=== PATIENT | male | born 1945 | race Caucasian/White ===

== ENCOUNTER 2018-11-13 00:17 | Day surgery (SDC) | payer MEDICARE ==
[2018-11-13] MEDS ORDERED: Amlodipine Besy10 MG PO (15:11)
[2018-11-13] MEDS ORDERED: CLON.1 PO (15:12)
[2018-11-13] MEDS ORDERED: ASPI325 PO (15:12)
[2018-11-13] MEDS ORDERED: CLOP75 PO (15:13)
[2018-11-13] MEDS ORDERED: DOXA4 PO (15:14)
[2018-11-13] MEDS ORDERED: VITAMIN D250000 UNIT PO (15:14)
[2018-11-13] MEDS ORDERED: Lasix40 MG PO (15:15)
[2018-11-13] MEDS ORDERED: Humalog100 UNIT/1 (15:16)
[2018-11-13] MEDS ORDERED: Neurontin600 MG PO (15:16)
[2018-11-13] MEDS ORDERED: SYNTHROID175 MCG PO (15:17)
[2018-11-13] MEDS ORDERED: TOUJEO SOL300 UNIT/1 SC (15:17)
[2018-11-13] MEDS ORDERED: ZESTRIL40 MG PO (15:18)
[2018-11-13] MEDS ORDERED: LISI20 PO (15:19)
== END 2018-11-13 16:10 | disposition home or self-care (01) ==
LOC: ATC 00:17
DX: N18.6 End stage renal disease (principal); D63.1 Anemia in chronic kidney disease; Z79.899 Other long term (current) drug therapy; Z79.82 Long term (current) use of aspirin; Z79.4 Long term (current) use of insulin
CPT/HCPCS: 36415; 36430; 86850; 86900; 86901; 86923; J7050; P9016

== ENCOUNTER 2018-12-01 10:30 | Observation (INO) | payer MEDICARE ==
[~2018-12-01] VITALS: Ht 182.9 cm; Wt 80.9 kg
[~2018-12-01 10:30] MED LIST: ASPI325 PO; Amlodipine Besy10 MG PO; CLON.1 PO; CLOP75 PO; DOXA4 PO; Humalog100 UNIT/1; LISI20 PO; Lasix40 MG PO; Neurontin600 MG PO; SYNTHROID175 MCG PO; TOUJEO SOL300 UNIT/1 SC; VITAMIN D250000 UNIT PO; ZESTRIL40 MG PO
[2018-12-01] MEDS ORDERED: Neurontin600 MG PO (10:59)
[2018-12-01] MEDS ORDERED: Humalog100 UNIT/1 SC (10:59)
[2018-12-01 11:00] LABS: Calcium, Ionized (POC) 1.02 mmol/L (1.10-1.46); Chloride (POC) 115 mmol/L (98-108); Creatinine (POC) 5.4 mg/dL (0.8-1.3); Glucose (ISTAT POC) 212 mg/dL (70-99); Hemoglobin (POC) 11.2 g/dL (13.5-17.5); Potassium (POC) 7.4 mmol/L (3.5-5.5); Sodium (POC) 135 mmol/L (135-148); Total CO2 (POC) 14 mmol/L (21-32)
[2018-12-01] MEDS ORDERED: LISI20 PO (11:00)
[2018-12-01] MEDS ORDERED: ATOR40TA PO (11:00)
[2018-12-01 11:02] LABS: BASOPHILS ABSOLUTE AUTO 0.04 K/mm3 (0.00-0.23); BASOPHILS PERCENT AUTO 1 % (0-2); EOSINOPHILS ABSOLUTE AUTO 0.13 K/mm3 (0.00-0.68); EOSINOPHILS PERCENT AUTO 3 % (0-6); Hematocrit 36.4 % (37.0-53.0); IMMATURE GRAN ABSOLUTE AUTO 0.01 K/mm3 (0.00-0.10); IMMATURE GRAN PERCENT AUTO 0 % (0-1); LYMPHOCYTES ABSOLUTE AUTO 0.77 K/mm3 (0.84-5.20); LYMPHOCYTES PERCENT AUTO 17 % (21-46); MONOCYTES ABSOLUTE AUTO 0.44 K/mm3 (0.16-1.47); MONOCYTES PERCENT AUTO 10 % (4-13); Mean Corpuscular HGB 31.8 pg (26.0-34.0); Mean Corpuscular HGB Conc 30.2 g/dL (31.5-36.5); Mean Corpuscular Volume 105 fL (80-100); Mean Platelet Volume 11.5 fL (9.1-12.4); NEUTROPHILS ABSOLUTE AUTO 3.23 K/mm3 (1.96-9.15); NEUTROPHILS PERCENT AUTO 70 % (41-73); Platelet Count 113 K/mm3 (150-400); RDW Coefficient Variation 15.3 % (11.7-14.2); RDW Standard Deviation 59.8 fL (35.1-46.3); Red Blood Cell Count 3.46 M/mm3 (4.30-5.90); White Blood Cell Count 4.62 K/mm3 (4.00-11.30)
[2018-12-01] MEDS ORDERED: MAGNESIUM PO (11:02)
[2018-12-01] MEDS ORDERED: Mupirocin22 GM (11:02)
[2018-12-01] MEDS ORDERED: TRESIBA100 UNIT/1 SC (11:03)
[2018-12-01 11:19] LABS: International Normalized Ratio 1.08; Prothrombin Time Results 11.4 Sec (9.7-11.5)
[2018-12-01 11:39] LABS: Albumin, Blood 2.7 g/dL (3.4-5.0); Albumin/Globulin Ratio 0.8 (0.8-1.8); Bilirubin, Total 0.2 mg/dL (0.1-1.0); Bun/Creatinine Ratio 32.3 (12.0-20.0); Calcium, Blood 7.1 mg/dL (8.5-10.1); Creatinine, Blood 4.52 mg/dL (0.60-1.20); Globulin, Blood 3.4 g/dL (2.2-4.0); Potassium, Blood 7.2 mmol/L (3.5-5.5); Total Protein, Blood 6.1 g/dL (6.4-8.2)
[2018-12-01] MEDS ORDERED: TOUJEO SOL300 UNIT/1 SC (12:32)
[2018-12-01] MEDS ORDERED: SEVE800 PO (12:33)
[2018-12-01] MEDS ORDERED: VITAMIN D50000 UNIT PO (12:34)
[2018-12-01 12:58] LABS: Calcium, Blood 7.1 mg/dL (8.5-10.1); Creatinine, Blood 4.51 mg/dL (0.60-1.20); Potassium, Blood 7.2 mmol/L (3.5-5.5)
[2018-12-01] MEDS ORDERED: VITAMIN D250000 UNIT PO (15:09)
[2018-12-01] MEDS ORDERED: Super B-50 Com1 EACH PO (15:13)
[2018-12-01 15:58] LABS: Potassium, Blood 6.8 mmol/L (3.5-5.5)
--- NOTE | 2018-12-01 16:19 | NUR ---
ARRIVAL PT ARRIVED TO UNIT AND PEER STAFF ABLE TO GET PATIENT SETTLED AND BEGIN ADMISSION PROCESS. I WAS ABLE TO COMPLETE ADMISSION PROCESS. PT REPORTS HE IS NOT HAPPY ABOUT BEING THERE AND FEELS OKAY. PT VITAL SIGNS STABLE ALTHOUGH HEART RATE SINUS BRADYCARDIA IN 40'S. PT REPROTS THAT THEY HAVE PREVIOUSLY TALKED AOUT PLACING A PACEMAKER IN HIM. RECIEVED LAB RESULTS, POTASSIUM HAS COME DOWN TO 6.8. CALL PLACED TO DR. HOGAN TO NOTIFIY OF THIS. WILL CONTINUE TO MONITOR.
--- NOTE | 2018-12-01 18:38 | NUR ---
PERITONEAL DIALYSIS PATIENT ADMITTED TO PCU 6 WITH SERUM K+ 6.8 DR HOGAN ORDERED 3 EXCHANGES TO BE DONE PRIOR TO START OF REGULAR OVERNIGHT CCPD. PATIENT CURRENTLY IN PROCESS OF TRANSFERING CARE FROM [facility] IN [place] TO [facility] IN [place]. PATIENT HAS A LARGE AMOUNT OF FRESENIUS FLUIDS REMAINING AT HIS HOME, HE STILL HAS A FRESENIUS TRANSFER SET ON HIS PD CATHETER NECESSITATING A TRANSFER SET CHANGE TO [employer]. THE TRANSFER SET WAS AESEPTICALLY CHANGED AND ONCE PRIME COMPLETE PATIENT WAS CONNECTED PER PROTOCOL AND FLUSHES STARTED.
--- NOTE | 2018-12-01 19:39 | NUR ---
SHIFT SUMMARY PT PLEASANT, COOPERATIVE AND USES CALL LIGHT APPROPRAITELY. ALTHOUGH PT REPORTS HE IS NOT HAPPY ABOUT BEING AT HOSPITAL. ASSESSMENT FINDINGS REMAIN UNCHANGED SINCE ARRIVAL TO UNIT. VITAL SIGNS STABLE. COMPLETED ORDERS RECIEVED FROM DOCTOR SAMIRA. AFTER THIS POTASSIUM LEVEL WAS REDRAWN. PT HEART RATE INCREASED TO 50'S. PT WAS ABLE TO AMBUATLE TO BATHROOM AND TOLERATED WELL.PT DENIES ANY DIZZINESS OR LIGHTHEADNESS. FAMIYL AT BEDSDIE INTTERMITTENLY. BED IN LOW POSITION, CALL LIGHT IN REACH AND PT DENIES ANY NEEDS WILL CONTINUE TO MONITOR UNTIL HANDOFF TO NIGHTSHIFT RN.
--- NOTE | 2018-12-01 21:40 | NUR ---
PT CBG ELEVATED. PT REPORTS TAKING LONG ACTING INSULIN IN THE EVENINGS ONLY & NOT TAKING "COVERAGE" FOR BLOOD SUGARS AFTER DINNER D/T HX OF BLOOD SUGARS DROPPING OVERNIGHT. WILL CONTINUE TO MONITOR.
--- NOTE | 2018-12-01 21:49 | NUR ---
ONCE FLUSHES COMPLETED, CYCLER STRIPPED, CLEANED AND RESTRUNG FOR OVERNIGHT CCPD THERAPY. 6L 2.5% AND 6L 1.5% UTILIZED. CYCLER PROGRAMMED PER RX. PATIENT AWAKE / ALERT IN BED. SPOUSE AT BEDSIDE. PATIENT AESEPTICALLY CONNECTED AND THERAPY STARTED. INITIAL DRAIN MONITORED FOR PATIENT TOLERANCE. EXIT SITE CARE DONE. SOME REDNESS AT EXIT BUT NO TENDERNESS REPORTED. NEW STERILE DRESSING APPLIED AND ONE STRAIN RELIEF IN PLACE. PD EFFLUENT SAMPLE ORDERED FOR AM AND DIALYSIS NURSE WILL OBTAIN AND TRANSPORT TO LAB.
--- NOTE | 2018-12-01 22:00 | NUR ---
PERITONEAL DIALYSIS BEING DONE IN ROOM BY DIALYSIS NURSE.
[2018-12-01 22:20] LABS: Bun/Creatinine Ratio 33.7 (12.0-20.0); Calcium, Blood 7.2 mg/dL (8.5-10.1); Creatinine, Blood 4.09 mg/dL (0.60-1.20); Potassium, Blood 5.5 mmol/L (3.5-5.5)
--- NOTE | 2018-12-02 00:16 | NUR ---
EPISODE OF 450 MLS EMESIS. CALL TO WELL LOGGING CAPTAIN SOM W/ REQUEST FOR SOMETHING FOR N&V. WELL LOGGING CAPTAIN TO PUT IN ORDERS. WILL CONTINUE TO MONITOR AND PROVIDE CARE.
[2018-12-02 03:38] LABS: Hemoglobin 10.9 g/dL (13.5-17.5)
[2018-12-02 03:58] LABS: Albumin, Blood 2.5 g/dL (3.4-5.0); Albumin/Globulin Ratio 0.8 (0.8-1.8); Bilirubin, Total 0.3 mg/dL (0.1-1.0); Bun/Creatinine Ratio 33.4 (12.0-20.0); Calcium, Blood 7.4 mg/dL (8.5-10.1); Creatinine, Blood 3.92 mg/dL (0.60-1.20); Globulin, Blood 3.2 g/dL (2.2-4.0); Phosphorus, Blood 6.1 mg/dL (2.5-4.9); Potassium, Blood 5.1 mmol/L (3.5-5.5); Total Protein, Blood 5.7 g/dL (6.4-8.2)
--- NOTE | 2018-12-02 04:56 | NUR ---
SHIFT SUMMARY PT A&O X4. MONITOR SHOWS SB, HR 40-60. LUNG SOUNDS CLEAR, SPO2 > 92% ON RA. VSS. 1 EPISODE OF 450 MLS OF EMESIS THIS SHIFT, TX'D W/ ONE TIME ORDER ZOFRAN. PD DONE IN PT RM THIS SHIFT BY DIALYSIS NURSE. PT REPORTING DESIRE TO GO HOME. WILL CONTINUE TO MONITOR AND PROVIDE CARE UNTIL REPORT OFF TO DAY SHIFT RN.
[2018-12-02 10:07] LABS: Automated BF WBC Count 0.005 K/mm3 (0-999); Body Fluid WBC Count 5 /mm3 (0-999)
[2018-12-02 10:47] LABS: RBC Count, Body Fluid 44 /mm3 (0-0)
[2018-12-02 11:04] LABS: Appearance, Body Fluid Clear (Clear); Color, Body Fluid No color (None-Yellow)
[2018-12-02 11:44] LABS: Total Cell Count, Body Fluid 26
--- NOTE | 2018-12-02 12:36 | NUR ---
SHIFT SUMMARY PT ALERT AND ORIENTED. VS STABLE. PT DENIES ANY PAIN. PERITONEAL DIALYSIS COMPLETE THIS AM. DR. LIZARRAGA IN WITH DISCHARGE ORDERS. DISCHARGE INSTRUCTIONS PROVIDED. NO NEW MEDICATIONS. ALL QUESTIONS ANSWERED. SPOKE WITH PT'S AND UPDATED HER ON DISCHARGE. STRENGTH AND CONDITIONING COACH IN WITH PT AND THEN PT WILL BE TAKEN OUT BY WHEELCHAIR.
--- NOTE | 2018-12-02 13:11 | NUR ---
DIALYSIS-PD DC'ED TX AT 0800. ID [id number] UF [id number]. PT VERY ANXIOUS ABOUT HIS PD SUPPLIES (FR[employer]ENIUS VS [employer]). HE HAS ASKED THE FLOOR RN, WHO DOESNT KNOW ABOUT PD, DIALYSIS NURSES, AND THE DRS. I CALLED THE [place] PD NURSE WHO HAS BEEN DEALING WITH HIM SINCE HE TRANSFERED HERE. SHE IS GOING TO TALK TO HIM ABOUT THE SUPPLIES AGAIN. HIS SITE WAS CLEAR AND THE FLUID WAS CLEAR. SUPPLIES AGAIN, HE SITE WAS CLEAR AND FLUID CLEAR.
== END 2018-12-02 12:51 | disposition home or self-care (01) ==
LOC: ER 10:30 → PCU 10:31
PROVIDERS: Emergency Medicine; Internal Medicine Nephrology; ADMIT Hospitalist
DX: E87.5 Hyperkalemia (principal); R00.1 Bradycardia, unspecified; K92.1 Melena; I12.0 Hypertensive chronic kidney disease with stage 5 chronic kidney disease or end stage renal disease; E10.22 Type 1 diabetes mellitus with diabetic chronic kidney disease; N18.6 End stage renal disease; E10.51 Type 1 diabetes mellitus with diabetic peripheral angiopathy without gangrene; I73.9 Peripheral vascular disease, unspecified; I25.10 Atherosclerotic heart disease of native coronary artery without angina pectoris; Z99.2 Dependence on renal dialysis; Z87.891 Personal history of nicotine dependence; Z79.899 Other long term (current) drug therapy; Z79.82 Long term (current) use of aspirin; Z79.02 Long term (current) use of antithrombotics/antiplatelets
CPT/HCPCS: 36415; 80047; 80048; 80053; 82272; 82374; 82947; 83735; 84100; 84132; 85014; 85018; 85025; 85610; 85730; 86850; 86900; 86901; 87070; 87075; 87205; 89051; 93005; 93010; 96365; 96366; 96375; 96376; 99285-25; C9113; G0257; G0378; J0610; J1644; J1815; J2405; J7799

== ENCOUNTER → 2019-01-08 | Outpatient (CLI) | payer MEDICARE ==
[~2019-01-08] MED LIST changes: +ATOR40TA PO; +Humalog100 UNIT/1 SC; +MAGNESIUM PO; +Mupirocin22 GM; +SEVE800 PO; +Super B-50 Com1 EACH PO; +TRESIBA100 UNIT/1 SC; +VITAMIN D50000 UNIT PO
== END | disposition home or self-care (01) ==
LOC: LAB SHORT 10:44 → PLD 10:44
DX: D04.22 Carcinoma in situ of skin of left ear and external auricular canal (principal); D04.4 Carcinoma in situ of skin of scalp and neck
CPT/HCPCS: 88305

== ENCOUNTER → 2019-08-19 | Outpatient (CLI) | payer MEDICARE ==
[2019-08-19 15:12] LABS: BASOPHILS ABSOLUTE AUTO 0.04 K/mm3 (0.00-0.23); BASOPHILS PERCENT AUTO 1 % (0-2); EOSINOPHILS ABSOLUTE AUTO 0.21 K/mm3 (0.00-0.68); EOSINOPHILS PERCENT AUTO 5 % (0-6); Hemoglobin 11.2 g/dL (13.5-17.5); IMMATURE GRAN ABSOLUTE AUTO 0.01 K/mm3 (0.00-0.10); IMMATURE GRAN PERCENT AUTO 0 % (0-1); LYMPHOCYTES ABSOLUTE AUTO 1.05 K/mm3 (0.84-5.20); LYMPHOCYTES PERCENT AUTO 24 % (21-46); MONOCYTES PERCENT AUTO 9 % (4-13); Mean Corpuscular HGB 32.1 pg (26.0-34.0); Mean Corpuscular HGB Conc 32.9 g/dL (31.5-36.5); Mean Corpuscular Volume 97 fL (80-100); NEUTROPHILS ABSOLUTE AUTO 2.63 K/mm3 (1.96-9.15); NEUTROPHILS PERCENT AUTO 61 % (41-73); Platelet Count 155 K/mm3 (150-400); RDW Coefficient Variation 13.1 % (11.7-14.2); RDW Standard Deviation 46.5 fL (35.1-46.3); Red Blood Cell Count 3.49 M/mm3 (4.30-5.90); White Blood Cell Count 4.34 K/mm3 (4.00-11.30)
[2019-08-19 15:19] LABS: Percent Saturation 21.9 % (20.0-50.0)
[2019-08-19 15:26] LABS: Alanine Aminotransfer (ALT/SGP 19 U/L (12-78); Albumin, Blood 2.7 g/dL (3.4-5.0); Albumin/Globulin Ratio 0.8 (0.8-1.8); Alk Phos 119 U/L (50-136); Anion Gap 8 mmol/L (6-16); Aspartate Aminotrans (AST/SGOT 20 U/L (12-37); Bilirubin, Direct 0.1 mg/dL (0.0-0.3); Bilirubin, Indirect 0.4 mg/dL (0.1-0.7); Bilirubin, Total 0.5 mg/dL (0.1-1.0); Blood Urea Nitrogen 55 mg/dL (8-24); CHOL/HDL RATIO 2.5; CO2, Blood 27 mmol/L (21-32); Calcium, Blood 8.2 mg/dL (8.5-10.1); Chloride, Blood 104 mmol/L (98-108); Cholesterol 122 mg/dL (50-200); Globulin, Blood 3.5 g/dL (2.2-4.0); Glucose, Blood 197 mg/dL (70-99); HDL Cholesterol 48 mg/dL (>39); LDL/HDL RATIO 1.3; Low Density Lipoprotein Chol 61 mg/dL (0-110); Magnesium, Blood 2.7 mg/dL (1.6-2.4); Phosphorus, Blood 3.4 mg/dL (2.5-4.9); Potassium, Blood 3.8 mmol/L (3.5-5.5); Sodium, Blood 139 mmol/L (136-145); Total Protein, Blood 6.2 g/dL (6.4-8.2); Triglycerides 65 mg/dL (30-160); Very Low Density Lipoprot Chol 13 mg/dL (6-32)
[2019-08-19 15:34] LABS: Bun/Creatinine Ratio 15.2 (12.0-20.0); Creatinine, Blood 3.63 mg/dL (0.60-1.20); Folate 14.9 ng/mL (5.2-); Glomerular Filtration Rate 18 (60-)
[2019-08-20 08:08] LABS: HCV ANTIBODY <0.1 (0.0-0.9); HEPATITIS B SURF AB QUANT 65.4 mIU/mL (Immunity>9.9)
[2019-08-21 15:10] LABS: A/G RATIO 1.3 (0.7-1.7); ALPHA-1-GLOBULIN 0.3 g/dL (0.0-0.4); ALPHA-2-GLOBULIN 0.7 g/dL (0.4-1.0); BETA GLOBULIN 0.7 g/dL (0.7-1.3); GAMMA GLOBULIN 0.7 g/dL (0.4-1.8); GLOBULIN, TOTAL 2.4 g/dL (2.2-3.9); IMMUNOGLOBULIN A, QN, SERUM 303 mg/dL (61-437); IMMUNOGLOBULIN G, QN, SERUM 699 mg/dL (603-1613); IMMUNOGLOBULIN M, QN, SERUM 63 mg/dL (15-143); M-SPIKE Not Observed g/dL (Not Observed); PROTEIN, TOTAL, SERUM 5.4 g/dL (6.0-8.5)
== END | disposition home or self-care (01) ==
PROVIDERS: Internal Medicine Nephrology
DX: N18.4 Chronic kidney disease, stage 4 (severe) (principal); D63.1 Anemia in chronic kidney disease; N25.81 Secondary hyperparathyroidism of renal origin; E55.9 Vitamin D deficiency, unspecified; E78.00 Pure hypercholesterolemia, unspecified; D51.8 Other vitamin B12 deficiency anemias; D52.8 Other folate deficiency anemias; D50.9 Iron deficiency anemia, unspecified; R76.9 Abnormal immunological finding in serum, unspecified; R94.5 Abnormal results of liver function studies; R94.6 Abnormal results of thyroid function studies

== ENCOUNTER 2019-09-19 21:25 | Inpatient (IN) | payer MEDICARE, OTHER ==
[~2019-09-19] VITALS: Ht 180.3 cm; Wt 79.7 kg
[~2019-09-19 21:25] MED LIST changes: -ATOR40TA PO; +ATOR80 PO
[2019-09-19 21:44] LABS: BASOPHILS ABSOLUTE AUTO 0.08 K/mm3 (0.00-0.23); BASOPHILS PERCENT AUTO 1 % (0-2); EOSINOPHILS ABSOLUTE AUTO 0.21 K/mm3 (0.00-0.68); EOSINOPHILS PERCENT AUTO 2 % (0-6); Hematocrit 29.7 % (37.0-53.0); Hemoglobin 9.6 g/dL (13.5-17.5); IMMATURE GRAN ABSOLUTE AUTO 0.03 K/mm3 (0.00-0.10); IMMATURE GRAN PERCENT AUTO 0 % (0-1); LYMPHOCYTES ABSOLUTE AUTO 1.51 K/mm3 (0.84-5.20); LYMPHOCYTES PERCENT AUTO 17 % (21-46); MONOCYTES ABSOLUTE AUTO 0.99 K/mm3 (0.16-1.47); MONOCYTES PERCENT AUTO 11 % (4-13); Mean Corpuscular HGB Conc 32.3 g/dL (31.5-36.5); Mean Corpuscular Volume 96 fL (80-100); NEUTROPHILS ABSOLUTE AUTO 6.03 K/mm3 (1.96-9.15); NEUTROPHILS PERCENT AUTO 68 % (41-73); Platelet Count 235 K/mm3 (150-400); RDW Coefficient Variation 13.1 % (11.7-14.2); RDW Standard Deviation 46.3 fL (35.1-46.3); White Blood Cell Count 8.85 K/mm3 (4.00-11.30)
[2019-09-19 21:45] LABS: Calcium, Ionized (POC) 1.14 mmol/L (1.10-1.46); Chloride (POC) 104 mmol/L (98-108); Creatinine (POC) 3.8 mg/dL (0.8-1.3); Glucose (ISTAT POC) 201 mg/dL (70-99); Hemoglobin (POC) 9.9 g/dL (13.5-17.5); Potassium (POC) 3.4 mmol/L (3.5-5.5); Sodium (POC) 138 mmol/L (135-148); Total CO2 (POC) 21 mmol/L (21-32)
[2019-09-19 21:46] LABS: Base Excess Venous -4.6 mmol/L; Bicarbonate Venous 20.9 mmol/L (24.0-30.0); PCO2 Venous 36.8 mmHg (38-42); PO2 Venous 89.4 mmHg (38-42); pH Blood Venous 7.36 (7.34-7.37)
[2019-09-19] MEDS ORDERED: HUMALOG100 UNIT/1 (21:56)
[2019-09-19] MEDS ORDERED: TOUJEO SOL300 UNIT/2 SC (21:57)
[2019-09-19] MEDS ORDERED: Synthroid200 MCG PO (21:57)
[2019-09-19] MEDS ORDERED: ZOLOFT50 MG PO (21:57)
[2019-09-19] MEDS ORDERED: SEVEC800 PO (22:05)
[2019-09-19] MEDS ORDERED: CALC.25 PO (22:06)
[2019-09-19 22:11] LABS: Albumin, Blood 3.1 g/dL (3.4-5.0); Albumin/Globulin Ratio 0.9 (0.8-1.8); Bilirubin, Total 0.3 mg/dL (0.1-1.0); Bun/Creatinine Ratio 22.7 (12.0-20.0); Calcium, Blood 8.6 mg/dL (8.5-10.1); Creatinine, Blood 3.79 mg/dL (0.60-1.20); Globulin, Blood 3.6 g/dL (2.2-4.0); Potassium, Blood 3.4 mmol/L (3.5-5.5); Total Protein, Blood 6.7 g/dL (6.4-8.2)
[2019-09-19 22:21] LABS: Troponin I 2.69 ng/mL (0.000-0.040)
[2019-09-19 23:38] LABS: International Normalized Ratio 1.08; Prothrombin Time Results 11.5 Sec (9.7-11.5)
[2019-09-19 23:41] LABS: PCO2 Arterial 38.9 mmHg (35-45); PO2 Arterial 61.9 mmHg (80-100); pH Blood Arterial 7.38 (7.35-7.45)
--- NOTE | 2019-09-19 23:45 | NUR ---
PT ARRIVED TO ICU 7 FROM ER. PT ON BIPAP ACCOMPANIED BY RT, DIGITAL IMAGER, AND MEDARDO WATER FILTER CLEANER. PT MAX ASSIST TRANSFER TO BED. PT IS ABLE TO GIVE SHORT ANSWERS TO QUESTIONS WHILE ON BIPAP. PT DENIES CP BUT STATES HE HAS TIGHTNESS IN SHOULDERS. HAS NITRO PASTE ON. PD CATH TO Olamide LOWERY. FLIGHT PURSER WILL BE IN TO CONNECT PT.
--- NOTE | 2019-09-20 | NUR ---
DR. HOGAN IN TO SEE PT.
[2019-09-20 00:24] LABS: Source, Urine Voided
[2019-09-20 00:27] LABS: Bilirubin, Urine Neg (Neg); Blood, Urine 3+ (Neg); Glucose Qualitative, Urine 1+ (Neg); Ketones, Urine Neg (Neg); Leukocyte Esterase, Urine Neg (Neg); Nitrite, Urine Neg (Neg); Protein, Urine 3+ (Neg); Specific Gravity, Urine 1.015 (1.003-1.022); Urobilinogen, Urine NORM (Normal)
[2019-09-20 00:28] LABS: Appearance, Urine Clear (Clear); Color, Urine Yellow (P-Yellow)
--- NOTE | 2019-09-20 00:30 | NUR ---
JOSE LUIS TURBINE OPERATOR HERE TO GET PT STARTED ON PD.
[2019-09-20 00:44] LABS: Bacteria Not Seen /hpf; Mucus Light (0-Heavy); Red Blood Cells, Urine 0-2 /hpf (0-2); Squamous Epithelial Cells Few /hpf (Few); White Blood Cells, Urine Rare /hpf (0-5)
[2019-09-20 00:52] LABS: Magnesium, Blood 2.4 mg/dL (1.6-2.4); Phosphorus, Blood 3.3 mg/dL (2.5-4.9)
[2019-09-20 02:08] LABS: BASOPHILS ABSOLUTE AUTO 0.05 K/mm3 (0.00-0.23); BASOPHILS PERCENT AUTO 1 % (0-2); EOSINOPHILS ABSOLUTE AUTO 0.06 K/mm3 (0.00-0.68); EOSINOPHILS PERCENT AUTO 1 % (0-6); Hemoglobin 9.4 g/dL (13.5-17.5); IMMATURE GRAN ABSOLUTE AUTO 0.04 K/mm3 (0.00-0.10); IMMATURE GRAN PERCENT AUTO 1 % (0-1); LYMPHOCYTES ABSOLUTE AUTO 0.95 K/mm3 (0.84-5.20); LYMPHOCYTES PERCENT AUTO 15 % (21-46); MONOCYTES ABSOLUTE AUTO 0.74 K/mm3 (0.16-1.47); MONOCYTES PERCENT AUTO 11 % (4-13); Mean Corpuscular HGB 31.2 pg (26.0-34.0); Mean Corpuscular HGB Conc 32.4 g/dL (31.5-36.5); Mean Corpuscular Volume 96 fL (80-100); Mean Platelet Volume 11.1 fL (9.1-12.4); NEUTROPHILS ABSOLUTE AUTO 4.73 K/mm3 (1.96-9.15); NEUTROPHILS PERCENT AUTO 72 % (41-73); Platelet Count 220 K/mm3 (150-400); RDW Coefficient Variation 13.2 % (11.7-14.2); RDW Standard Deviation 46.3 fL (35.1-46.3); Red Blood Cell Count 3.01 M/mm3 (4.30-5.90); White Blood Cell Count 6.57 K/mm3 (4.00-11.30)
[2019-09-20 02:25] LABS: Albumin, Blood 2.9 g/dL (3.4-5.0); Anion Gap 7 mmol/L (6-16); Blood Urea Nitrogen 89 mg/dL (8-24); Bun/Creatinine Ratio 23.5 (12.0-20.0); CO2, Blood 26 mmol/L (21-32); Calcium, Blood 8.3 mg/dL (8.5-10.1); Chloride, Blood 107 mmol/L (98-108); Creatinine, Blood 3.79 mg/dL (0.60-1.20); Glomerular Filtration Rate 17 (60-); Glucose, Blood 176 mg/dL (70-99); Magnesium, Blood 2.4 mg/dL (1.6-2.4); Phosphorus, Blood 3.8 mg/dL (2.5-4.9); Potassium, Blood 3.7 mmol/L (3.5-5.5); Sodium, Blood 140 mmol/L (136-145)
--- NOTE | 2019-09-20 02:43 | NUR ---
CALLED DR. GOOD ABOUT TROPONIN. PT DENIES PAIN STILL. DR. GOOD WANTS TO BE NOTIFIED IF CP OCCURS OR BECOMES HEMODYNAMICALLY UNSTABLE. PT IS ON HEPARIN GTT FOR NSTEMI.
--- NOTE | 2019-09-20 03:31 | NUR ---
DIALYSIS-PD CALLED TO SETUP PD FOR PT. HE HAS BEEN OFF OF PD FOR APPROXIMATELY 40 DAYS. HE IS FLUID OVERLOADED. TALKED TO DR HOGAN. HE GAVE ORDERS FOR THE TX. 2-4.25% DEXTROSE WITH HEPARIN AND INSULIN. DIANEAL BAGS TAKEN TO PHARMACY FOR MED INSERTION. SETUP THE TX AND STARTED THE INITIAL DRAIN. THERE WERE MULTIPLE ALARMS FOR LOW DRAIN/CHECK PT LINE. THE MACHINE WOULD NOT ALLOW ME TO GO TO BYPASS UNTIL IT HAD ALARMED APPROXIMATELY 10 TIMES. I THEN TRIED TO FLUSH THE PT LINE. IT WAS DIFFICULT BUT I COULD PUSH BUT NOT PULL. I TRIED FLUSHING IT SEVERAL TIMES WITH 50CC SYRINGE, USING APPROXIMATELY 20CC OF DIANEAL SOLUTION. RESTARTED THE MACHINE BUT IT CONTINUED TO ALARM. CALLED DR HENRY (THE [facility] PD NURSE AT THE CLINIC). I ACIIVASED THE CATHETER PER PROTOCAL AT 0314. IT NEEDS TO STAY IN THE CATH FOR 4 HOURS.
--- NOTE | 2019-09-20 04:41 | NUR ---
DR. GOOD CALLED TO INFORM RN THAT DR. ROQUE WANTS PT TO CONTINUE TO BE TREATED NSTEMI AND ON HEPARIN GTT. DR. GOOD ALSO SPOKE WITH DR. HOGAN WHO WILL ATTEMPT PD AT 0700 AGAIN. IF UNSUCCESSFUL PT WILL NEED HD CATH.
[2019-09-20 06:07] LABS: PCO2 Arterial 39.3 mmHg (35-45); PO2 Arterial 111 mmHg (80-100); pH Blood Arterial 7.37 (7.35-7.45)
--- NOTE | 2019-09-20 06:09 | NUR ---
SUMMARY PT WAS DOING FINE ON BIPAP WITH NO DIFFICULTIES. AT 0315 PT BECAME NAUSEATED THEN VOMITED ABOUT 100ML OF EMESIS. WAS ABLE TO GET BIPAP OFF BEFORE VOMITING. WHILE OFF BIPAP, PT DESATS TO 74%. WAS UNABLE TO TOLERATE OXYMIZER. EVENTUALLY HAD HIM ON AIRVO AND NON REBREATHER MAX'D. EKG WAS DONE. DR. GOOD WAS NOTIFIED AND CAME TO BEDSIDE TO EVALUATE. PT C/O ABD PAIN AND MID-LOW BACK PAIN. PT WAS GAURDED AND WANTING TO CURL UP IN POSITION. PT'S SKIN TONE WAS ASHEN. DR. GOOD ATTEMPTED TO CONTACT . EVENTUALLY PT HAD TO BE INTUBATED BY ER PHYSICIAN AT 423. PT WAS SEDATED WITH ETOMIDATE AND ROCURONIUM. AFTER INTUBATION PT WAS PLACED ON PROPOFOL THEN TAKEN TO CT. OG WAS PLACE WELL ARAUZ. DR. GOOD CONTACTED DR. ROQUE. DR. RQOUE CAME TO THE ROOM PT WAS BEING WHEELED TO CT, NO NEW ORDERS JUST QUICKLY UPDATED HIM ON PT'S COMPLAINTS BEFORE INTUBATION. DR. HOGAN WILL TRY PD AGAIN THIS AM IF THAT IS UNSUCCESSFUL THEN PT WILL NEED HD CATH. PT SEDATED WITH PROPOFOL AT 15 MCG/KG/MIN AND TOLERATING VENT. WEATHER FORECASTER WAS ABLE TO SPEAK TO HIS .
--- NOTE | 2019-09-20 07:42 | NUR ---
AFTER ACTIVASE DWELL X 4 HOURS, ASPIRATION FROM PD CATHETER ACCOMPLISHED AND 9 HOUR CCPD THERAPY FOR UF AND CLEARANCES INITIATED.
--- NOTE | 2019-09-20 08:40 | NUR ---
ASSUMED CARE REPORT RECEIVED FROM EBER LANG. PT RESTING IN BED, INTUBATED. PROPOFOL INFUSING BUT PT OPENING HIS EYES, BREATHING AGAINST VENT, PULLING ON RESTRAINTS. PT FOLLOWED COMMANDS TO SQUEEZE FINGERS. PROPOFOL INCREASED TO ASSIST IN PT COMFORT. PT'S SPO2 100% ON FIO2 70%, ABLE TO TITRATE DOWN TO 50%, RT NOTIFIED. JUVENCIO FROM DIALYSIS WAS ABLE TO GET PD CATHETER WORKING AND PD GOING NOW. CONTINUING TO MONITOR.
--- NOTE | 2019-09-20 09:07 | NUR ---
NOTIFIED DR. ROQUE OF SUCCESSFUL PD AND CTA RESULTS. PLAN IS TO TAKE PT TO WATCH DIAL STONER. SPOKE TO JUVENCIO, ZOOGLER AND HE WILL BE ABLE TO DISCONNECT PT FROM THE PD AROUND 1100. SPOKE WITH PT'S MARGAUX AND PROVIDED HER WITH UPDATE. DR. MARSHALL HERE WELL DOING ROUNDS. CONTINUING TO MONITOR.
--- NOTE | 2019-09-20 09:26 | NUR ---
echocardiogram complete
--- NOTE | 2019-09-20 14:00 | NUR ---
PT BACK FROM POULTRY FARM WORKER. TR BAND TO R WRIST APPEARS C/D/I, SOFT, WITHOUT HEMATOMA. R GROIN SITE HAS A LITTLE BIT OF OOZING BUT IS SOFT AND WITHOUT HEMATOMA. PT REMAINS SEDATED AND VENTED. RESTING COMFORTABLY WITH AT BEDSIDE. LUNGS REMAIN CLEAR, BP STABLE. JUVENCIO IN DIALYSIS NOTIFIED OF PT'S RETURN. PLAN FOR TRANSFER TO [place]. DR. ROQUE WORKING ON TRANSFER. CONTINUING TO MONITOR.
--- NOTE | 2019-09-20 16:20 | NUR ---
AFTER CCPD THERAPY RESUMED THIS AM PATIENT WAS SCHEDULED FOR ANGIOGRAM IN BUSINESS ETHICS PROFESSOR AT APPROX 1100. 3 EXCHANGES COMLETED AT THAT TIME. CCPD WAS PAUSED AND PATIENT WAS DISCONNECTED AND CAPPED FOR THE TRANSFER AND PROCEDURE. THERAPY AGAIN RESUMED POST ANGIOGRAM AT 1500. TWO MORE EXCHANGES COMPLETED PRIOR TO PATIENT AGAIN BEING DISCONNECTED AND THERAPY TERMINATED IN ANTICIPATION OF EMMINENT TRANSFER TO [facility] IN [facility] FOR CARE AT A HIGHER LEVEL OF ACUITY. CYCLER STRIPPED AND CLEANED AND RETURNED TO STORAGE.
--- NOTE | 2019-09-20 16:37 | NUR ---
SHIFT SUMMARY PT REMAINED SEDATED AND INTUBATED TODAY. HE WENT TO SPIRITUAL CARE COORDINATOR AND WILL BE TRANSFERRING TO [facility], ROOM ASSIGNMENT JUST RECEIVED. PT HAS ABOUT AN HOUR LEFT ON DIALYSIS AND THEN WILL TRANSFER. PT'S TR BAND SITE IS C/D/I, SOFT NE HEMATOMA. LETTING AIR OUT AND NO COMPLICATIONS SO FAR. R GROIN SITE IS C/D/I SOFT WITH NO HEMATOMA WELL. OOZING APPEARS TO HAVE STOPPED. LUNGS REMAIN CLEAR. FIO2 WAS TITRATED DOWN TO 30% AND PEEP DOWN TO 5 TODAY. SR, BP STABLE. ARAUZ WITH CL YELLOW URINE. PT'S HAS SPENT MOST OF THE DAY AT THE BEDSIDE. CONTINUE TO MONITOR.
--- NOTE | 2019-09-20 18:41 | NUR ---
DISCHARGE PT DISCHARGED WITH MEDICS AND RT FOR TRANSFER TO [facility] VIA AMBULANCE. REPORT GIVEN TO WINERY WORKER AND CALLED TO EBER MORRIS UP AT [facility]. TR BAND WITH 3ML OF AIR LEFT IN IT AT DISCHARGE. BOTH SITES REMAIN C/D/I, SOFT WITH NO HEMATOMA. PT'S GIVEN PT'S NEW ROOM INFORMATION AND HER NUMBER GIVEN TO RN AT [facility]. ALL BELONGINGS SENT WITH PT.
== END 2019-09-20 18:40 | disposition short-term general hospital (02) | DRG 280 ==
LOC: ER 21:25 → ICUW 23:34 → ICUE 23:34
PROVIDERS: Emergency Medicine; Internal Medicine Nephrology; Nurse Practitioner Acute Care; ADMIT Internal Medicine
PROC: B2151ZZ Fluoroscopy of Left Heart using Low Osmolar Contrast (ICD-10-PCS; principal; 2019-09-20)
PROC: 4A023N8 Measurement of Cardiac Sampling and Pressure, Bilateral, Percutaneous Approach (ICD-10-PCS; 2019-09-20)
PROC: B2111ZZ Fluoroscopy of Multiple Coronary Arteries using Low Osmolar Contrast (ICD-10-PCS; 2019-09-20)
PROC: 4A1239Z Monitoring of Cardiac Output, Percutaneous Approach (ICD-10-PCS; 2019-09-20)
PROC: 0BH17EZ Insertion of Endotracheal Airway into Trachea, Via Natural or Artificial Opening (ICD-10-PCS; 2019-09-20)
PROC: 5A1935Z Respiratory Ventilation, Less than 24 Consecutive Hours (ICD-10-PCS; 2019-09-20)
PROC: 5A09357 Assistance with Respiratory Ventilation, Less than 24 Consecutive Hours, Continuous Positive Airway Pressure (ICD-10-PCS; 2019-09-20)
PROC: 3E1M39Z Irrigation of Peritoneal Cavity using Dialysate, Percutaneous Approach (ICD-10-PCS; 2019-09-20)
DX: I21.4 Non-ST elevation (NSTEMI) myocardial infarction (principal); I50.21 Acute systolic (congestive) heart failure; N18.6 End stage renal disease; J96.01 Acute respiratory failure with hypoxia; I13.2 Hypertensive heart and chronic kidney disease with heart failure and with stage 5 chronic kidney disease, or end stage renal disease; N17.9 Acute kidney failure, unspecified; N25.81 Secondary hyperparathyroidism of renal origin; I25.10 Atherosclerotic heart disease of native coronary artery without angina pectoris; E10.51 Type 1 diabetes mellitus with diabetic peripheral angiopathy without gangrene; E10.22 Type 1 diabetes mellitus with diabetic chronic kidney disease; Z20.828 Contact with and (suspected) exposure to other viral communicable diseases; I25.2 Old myocardial infarction; E87.70 Fluid overload, unspecified; D63.1 Anemia in chronic kidney disease; E87.6 Hypokalemia; Z99.2 Dependence on renal dialysis; Z87.891 Personal history of nicotine dependence; Z95.5 Presence of coronary angioplasty implant and graft; Z79.02 Long term (current) use of antithrombotics/antiplatelets; Z79.82 Long term (current) use of aspirin; Z79.4 Long term (current) use of insulin; Z79.899 Other long term (current) drug therapy
CPT/HCPCS: 31500; 31720; 36415; 36600; 71045; 71275; 74175; 76937; 80047; 80053; 80069; 81001; 82803; 82947; 83605; 83735; 83880; 84100; 84484; 85014; 85025; 85347; 85610; 85730; 93005; 93010; 93306; 93460; 94002; 94003; 94640; 94660; 96365; 96375; 99285-25; A9270-GY; C1752; C1769; C1887; C1894; J0295; J0696; J0881; J1644; J1815; J2405; J2704; J2997; J7030; J7040; Q9967; U0002

== ENCOUNTER 2020-02-20 00:35 | Day surgery (SDC) | payer MEDICARE ==
[~2020-02-20 00:35] MED LIST changes: +Aspir 8181 MG PO; +CALC.25 PO; +HUMALOG100 UNIT/1; +SEVEC800 PO; +Synthroid200 MCG PO; +TOUJEO SOL300 UNIT/2 SC; +ZOLOFT50 MG PO
[2020-02-20] MEDS ORDERED: ELIQUIS2.5 MG PO (14:21)
[2020-02-24] MEDS ORDERED: TOUJEO MAX300 UNIT/2 SC (16:39)
[2020-02-24] MEDS ORDERED: FURO80 PO (16:39)
== END 2020-02-20 16:00 | disposition home or self-care (01) ==
LOC: ATC 00:35
PROC: 30233N1 Transfusion of Nonautologous Red Blood Cells into Peripheral Vein, Percutaneous Approach (ICD-10-PCS; principal; 2020-02-20)
DX: I13.2 Hypertensive heart and chronic kidney disease with heart failure and with stage 5 chronic kidney disease, or end stage renal disease (principal); E11.22 Type 2 diabetes mellitus with diabetic chronic kidney disease; N18.6 End stage renal disease; I50.20 Unspecified systolic (congestive) heart failure; D63.1 Anemia in chronic kidney disease; E03.9 Hypothyroidism, unspecified; F32.9 Major depressive disorder, single episode, unspecified; I25.10 Atherosclerotic heart disease of native coronary artery without angina pectoris; Z76.82 Awaiting organ transplant status; Z99.2 Dependence on renal dialysis; Z79.4 Long term (current) use of insulin; Z79.899 Other long term (current) drug therapy; Z87.891 Personal history of nicotine dependence
CPT/HCPCS: 36415; 36430; 86850; 86900; 86901; 86923; J7050; P9016

== ENCOUNTER 2020-02-25 08:13 | Day surgery (SDC) | payer MEDICARE ==
[~2020-02-25] VITALS: Ht 177.8 cm; Wt 83.0 kg
[~2020-02-25 08:13] MED LIST changes: +ELIQUIS2.5 MG PO; +FURO80 PO; +TOUJEO MAX300 UNIT/2 SC
--- NOTE | 2020-02-25 11:20 | NUR ---
MD AT BEDSIDE FOR REMOVAL OF PERMACATH. REMOVAL COMPLETED WITH NO COMPLICATIONS. PT DENIES ANY PAIN. WILL CONTINUE TO MONITOR.
--- NOTE | 2020-02-25 11:50 | NUR ---
PT SITTING UP IN BED EATING LUNCH. AT BEDSIDE. VSS. WILL CONTINUE TO MONITOR.
--- NOTE | 2020-02-25 12:03 | NUR ---
PT DRESSED SELF WITH NO COMPLICATIONS. SITE WITH NO OOZING, HEMATOMA OR BLEEDING NOTED. PT DENIES ANY PAIN. NO IV TO DC. PT AND STATE THEIR UNDERSTANDING OF DISCHARGE AND SITE CARE INSTRUCTIONS. PT TAKEN TO FRONT VIA WHEELCHAIR WHERE WAS WAITING WITH VEHICLE.
== END 2020-02-25 12:00 | disposition home or self-care (01) ==
LOC: MHTC 08:13
DX: I13.2 Hypertensive heart and chronic kidney disease with heart failure and with stage 5 chronic kidney disease, or end stage renal disease (principal); E11.22 Type 2 diabetes mellitus with diabetic chronic kidney disease; N18.6 End stage renal disease; I50.20 Unspecified systolic (congestive) heart failure; E03.9 Hypothyroidism, unspecified; F32.9 Major depressive disorder, single episode, unspecified; I25.10 Atherosclerotic heart disease of native coronary artery without angina pectoris; I25.2 Old myocardial infarction; I34.0 Nonrheumatic mitral (valve) insufficiency; Z99.2 Dependence on renal dialysis; Z87.891 Personal history of nicotine dependence; Z79.4 Long term (current) use of insulin; Z79.01 Long term (current) use of anticoagulants; Z79.02 Long term (current) use of antithrombotics/antiplatelets; Z79.899 Other long term (current) drug therapy
CPT/HCPCS: 36589

== ENCOUNTER 2020-07-08 17:37 | Emergency (ER) | payer MEDICARE ==
[~2020-07-08] VITALS: Ht 180.3 cm; Wt 82.5 kg
[2020-07-08 23:10] LABS: Calcium, Ionized (POC) 1.07 mmol/L (1.10-1.46); Chloride (POC) 97 mmol/L (98-108); Creatinine (POC) 3.3 mg/dL (0.8-1.3); Glucose (ISTAT POC) 196 mg/dL (70-99); Hemoglobin (POC) 11.6 g/dL (13.5-17.5); Potassium (POC) 3.9 mmol/L (3.5-5.5); Sodium (POC) 137 mmol/L (135-148); Total CO2 (POC) 30 mmol/L (21-32)
== END 2020-07-08 23:31 | disposition home or self-care (01) ==
LOC: ER 17:37
PROVIDERS: Emergency Medicine
DX: T85.691A Other mechanical complication of intraperitoneal dialysis catheter, initial encounter (principal); Z79.02 Long term (current) use of antithrombotics/antiplatelets; Z79.899 Other long term (current) drug therapy; Z79.4 Long term (current) use of insulin; Z79.01 Long term (current) use of anticoagulants
CPT/HCPCS: 36415; 74022; 80047; 82947; 85014; 99284-25

== ENCOUNTER 2020-08-30 18:10 | Inpatient (IN) | payer MEDICARE ==
[~2020-08-30] VITALS: Ht 170.2 cm; Wt 79.7 kg
[2020-08-30] MEDS ORDERED: HUMALOG100 UNIT/1 (18:49)
[2020-08-30] MEDS ORDERED: Norco 5-325 Ta1 EACH PO (18:50)
[2020-08-30] MEDS ORDERED: LISI5 PO (18:51)
[2020-08-30 18:52] LABS: BASOPHILS ABSOLUTE AUTO 0.01 K/mm3 (0.00-0.23); BASOPHILS PERCENT AUTO 0 % (0-2); EOSINOPHILS ABSOLUTE AUTO 0.05 K/mm3 (0.00-0.68); EOSINOPHILS PERCENT AUTO 1 % (0-6); Hematocrit 37.7 % (37.0-53.0); Hemoglobin 11.8 g/dL (13.5-17.5); IMMATURE GRAN PERCENT AUTO 0 % (0-1); LYMPHOCYTES ABSOLUTE AUTO 0.29 K/mm3 (0.84-5.20); LYMPHOCYTES PERCENT AUTO 7 % (21-46); MONOCYTES ABSOLUTE AUTO 0.27 K/mm3 (0.16-1.47); MONOCYTES PERCENT AUTO 6 % (4-13); Mean Corpuscular HGB Conc 31.3 g/dL (31.5-36.5); Mean Corpuscular Volume 99 fL (80-100); Mean Platelet Volume 9.3 fL (9.1-12.4); NEUTROPHILS PERCENT AUTO 85 % (41-73); Platelet Count 244 K/mm3 (150-400); RDW Coefficient Variation 15.7 % (11.7-14.2); RDW Standard Deviation 57.7 fL (35.1-46.3); Red Blood Cell Count 3.81 M/mm3 (4.30-5.90); White Blood Cell Count 4.22 K/mm3 (4.00-11.30)
[2020-08-30] MEDS ORDERED: TOPROL XL25 MG PO (18:52)
[2020-08-30 19:05] LABS: Albumin, Blood 1.6 g/dL (3.4-5.0); Albumin/Globulin Ratio 0.4 (0.8-1.8); Bilirubin, Total 0.3 mg/dL (0.1-1.0); Bun/Creatinine Ratio 16.9 (12.0-20.0); Calcium, Blood 7.5 mg/dL (8.5-10.1); Creatinine, Blood 3.84 mg/dL (0.60-1.20); Globulin, Blood 3.7 g/dL (2.2-4.0); Potassium, Blood 4.6 mmol/L (3.5-5.5); Total Protein, Blood 5.3 g/dL (6.4-8.2)
--- NOTE | 2020-08-30 21:11 | NUR ---
UNABLE TO ASPIRATED FROM PD CATHETER IN SPITE OF MULTIPLE FLUSHES WITH PRE-WARMED 2.5% DIANEAL. 2 LITERS 2.5% DIANEAL INSTILLED IN PERITONEUM. FOLLOWING FILL, STILL UNABLE TO ASPIRATED. DR HOGAN CALLED AND HE ORDERED ACTIVASE TO BE INSTILLED IN PD CATHETER PER DAVITA PROCEDURE AND FOLLOWING ONE HOUR DWELL, ATTEMPT CATHETER ASPIRATION.
--- NOTE | 2020-08-30 21:50 | NUR ---
ACTIVASE INSTILLED IN PD CATHETER LUMEN AT 2148 FOR ONE HOUR DWELL.
--- NOTE | 2020-08-30 23:16 | NUR ---
AFTER 70 MIN DWELL 50ML OF CLOUDY EFFLUENT WAS ASPIRATED WITH SOME DIFFICULTY. CULTURE, GRAM STAIN, CELL COUNT AND DIFFERENTIAL ORDERED AND ASSESSMENT CLINICIAN CARRIED TO LAB.
[2020-08-30 23:39] LABS: Automated BF RBC Count 0.002 M/mm3 (0-0); Automated BF WBC Count 7.263 K/mm3 (0-999); Body Fluid WBC Count 7263 /mm3 (0-999)
--- NOTE | 2020-08-30 23:56 | NUR ---
PER DR HOGAN'S ORDER : ACTIVASE INSTILLED IN PD CATHETER FOR OVERNIGHT DWELL. ATTEMPT WILL BE MADE TO ASPIRATE CATHETER AGAIN AT APPROXIMATELY 0700.
[2020-08-31 00:44] LABS: Total Cell Count, Body Fluid 100
[2020-08-31 00:45] LABS: Appearance, Body Fluid Hazy (Clear)
[2020-08-31 01:43] LABS: SARS-Cov-2 (COVID-19) PCR, MMC NEGATIVE (NEGATIVE)
[2020-08-31 03:23] LABS: Mean Corpuscular HGB Conc 31.3 g/dL (31.5-36.5); Mean Corpuscular Volume 99 fL (80-100); Mean Platelet Volume 9.3 fL (9.1-12.4); Platelet Count 199 K/mm3 (150-400); RDW Coefficient Variation 15.9 % (11.7-14.2); Red Blood Cell Count 3.23 M/mm3 (4.30-5.90); White Blood Cell Count 9.78 K/mm3 (4.00-11.30)
[2020-08-31 03:37] LABS: Albumin, Blood 1.8 g/dL (3.4-5.0); Anion Gap 6 mmol/L (6-16); Blood Urea Nitrogen 66 mg/dL (8-24); Bun/Creatinine Ratio 16.5 (12.0-20.0); CO2, Blood 24 mmol/L (21-32); Calcium, Blood 7.2 mg/dL (8.5-10.1); Chloride, Blood 106 mmol/L (98-108); Creatinine, Blood 4.01 mg/dL (0.60-1.20); Glomerular Filtration Rate 16 (60-); Glucose, Blood 159 mg/dL (70-99); Magnesium, Blood 1.8 mg/dL (1.6-2.4); Phosphorus, Blood 4.9 mg/dL (2.5-4.9); Potassium, Blood 4.8 mmol/L (3.5-5.5); Sodium, Blood 136 mmol/L (136-145)
[2020-08-31 03:41] LABS: BAND PERCENT MAN 20 % (0-8); BASOPHILS ABSOLUTE MAN 0.09 K/mm3 (0.00-0.23); BASOPHILS PERCENT MAN 1 % (0-2); EOSINOPHILS PERCENT MAN 0 % (0-6); LYMPHOCYTES ABSOLUTE MAN 0.29 K/mm3 (0.84-5.20); LYMPHOCYTES PERCENT MAN 3 % (21-46); MONOCYTES ABSOLUTE MAN 0.19 K/mm3 (0.16-1.47); MONOCYTES PERCENT MAN 2 % (4-13); NEUTROPHILS ABSOLUTE MAN 9.19 K/mm3 (1.96-9.15); SEG NEUTROPHILS PERCENT MAN 74 % (41-73); TOTAL CELLS COUNTED 100
--- NOTE | 2020-08-31 05:42 | NUR ---
SHIFT SUMMARY PT ARRIVED TO ICU FROM ER VIA GURNEY. TX TO ICU BED WITH SLIDER SHEET. PT A&OX4. FOLLOWING COMMANDS. RECEIVING ABX UPON ARRIVAL. SECOND 20 GA IV ESTABLISHED IN RFA AFTER ARRIVAL FOR INSPECTOR INTEGRATED CIRCUITS. BP HYPOTENSIVE, 1 TIME 500CC BOLUS NS ADMINISTERED. PT C/O MODERATE TO SEVERE ABDOMINAL PAIN, MEDICATED c 25MCG'S PRN FENTANYL. PERITONEAL DIALYSIS CATHETER IN PLACE. INVESTMENTS MANAGER INSERTED CATHFLO WHILE PT WAS IN THE ER WITH PLANS TO REASSESS PATENCY OF CATH TODAY. PT AFEBRILE T/O THE MORNING, WAS TREATED c TYLENOL IN THE ER, NO ADDITIONAL DOSES GIVEN. PT VOIDING USING URINAL. WILL CONTINUE TO MONITOR CLOSELY.
--- NOTE | 2020-08-31 08:30 | NUR ---
ASSUMED CARE BEDSIDE REPORT RECIEVED. PT IS LAYING IN BED RESTING QUIETLY. PT AWAKENS EASILY TO VERBAL STIMULI. PT IS ORIENTED AND ANSWERS QUESTIONS APPROPRIATELY, BUT PT IS DROWSEY. PT COMPLAINS OF MILD DISCOMFORT TO ABDOMEN. VITAL SIGNS STABLE. PT INITIALLY ON 2L O2 NC, PT PLACED ON ROOM AIR AT THIS TIME. PT WITH PERITONEAL DIAYSIS CATH IN PLACE TO RIGHT ABDOMEN. JUVENCIO, ASSURANCE SENIOR MANAGER INSURANCE AT BEDSIDE TO SET UP DIALYSIS DWELL AT THIS TIME. NS INFUSING THROUGH PERIPHERAL IV AT 50 ML/HR. WILL CONTINUE TO MONITOR.
--- NOTE | 2020-08-31 08:54 | NUR ---
PD CATHETER ABLE TO ASPIRATE THIS AM. EFFLUENT SAMPLE OBTAINED AND SENT TO LAB FOR CELL COUNT. CCPD IN/0UT EXCHANGES SET UP WITH CYCLER PER DR HOGAN'S ORDER. 6 EXCHANGES W/ 7 MIN DWELL FOLLOWED BY DISCREET LAST FILL W/ ONE GRAM ANCEF AND ONE GRAM FORTAZ. HEPARIN 1000 UNITS/ML ALL DIALNEAL. PT. AWAKE / ALERT. NO ACUTE DISTRESS NOTED AT THIS TIME. PENDING TRANSFER TO LOWER ACUITY CARE. EXIT SITE CARE DONE. SITE WNL. NEW STERILE DRESSING APPLIED W/ 2 STRAIN RELIEFS.
[2020-08-31 09:22] LABS: Automated BF RBC Count 0.002 M/mm3 (0-0); Automated BF WBC Count 2.351 K/mm3 (0-999); Body Fluid WBC Count 2351 /mm3 (0-999)
[2020-08-31 09:55] LABS: Color, Body Fluid L Yellow (None-Yellow); Total Cell Count, Body Fluid 100
[2020-08-31 09:56] LABS: Appearance, Body Fluid Hazy (Clear)
--- NOTE | 2020-08-31 13:05 | NUR ---
IN/OUT FLUSHES WITH CYCLER COMPLETED. PT DISCONNECTED AND CAPPED WITH NEW MINI-CAP. CYCLER STRIPPED AND CLEANED.
[2020-08-31 13:42] LABS: Vancomycin, Random 9.2 ug/mL
--- NOTE | 2020-08-31 18:21 | NUR ---
SUMMARY/TRANSFER TO MEDICAL NO ACUTE CHANGES THIS SHIFT. PT HAS REMAINED ALERT AND ORIENTED, BUT DROWSEY MOST OF THE SHIFT. PT ANSWERS QUESTIONS APPROPIATELY. PT COMPLAINED OF SOME ABD PAIN AND REQUESTED TUMS. VITAL SIGNS HAVE REMAINED STABLE. PT TOLERATED PO DIET AND FLUIDS WELL THIS SHIFT. PT RECIEVED PERITONEAL DIALYSIS THIS MORNING. DIALYSIS CATHETER TO RIGHT ABDOMEN REMAINS C/D/I. PT SPOUSE AT BEDSIDE THIS AFTERNOON. EXTENSIVE EDUCATION AND DISCUSSION ABOUT HOSPITAL STAY AND DISEASE PROCESS WHILE SPOUSE AT BEDSIDE. REPORT GIVEN TO EBER TOLLIVER VIA PHONE. ALL QUESTIONS ANSWERED. PT TAKEN TO ROOM 309 VIA WHEELCHAIR. ALL PT BELONGINGS AND MEDICATIONS TAKEN WITH PT.
--- NOTE | 2020-08-31 18:45 | NUR ---
PT ARRIVED TO ROOM 309 FROM ICU AND SETTLED IN TO BED. JUVENCIO FROM DIALYSIS HERE TO PLACE PT ON PERITONEAL DIALYSIS FOR THE EVENING. WILL REPORT CONDITION TO ONCOMING PT.
--- NOTE | 2020-08-31 18:53 | NUR ---
PT MOVED TO MED FLOOR STATUS. AWAKE , ALERT, ORIENTED. SOME ABD PAIN REPORTED. CYCLER STRUNG PRIMED AND PROGRAMMED PER DR HOGAN'S ORDER WITH DISCREET LAST FILL FILL CONTAINING ANCEF AND FORTAZ. HEPARIN 1000 UNITS PER LITER ALL DIANEAL. EXIT SITE CARE DONE THIS AM AND STILL INTACT AND CLEAR. THERAPY MONITORED THOUGHOUT INITIAL DRAIN AND START OF FILL #1. NO REPORT OF INCREASED PAIN LEVEL. [facility] FLOOR STAFF AWARE OF OVERNIGHT THERAPY IN PROGRESS.
[2020-09-01 04:36] LABS: BASOPHILS ABSOLUTE AUTO 0.01 K/mm3 (0.00-0.23); BASOPHILS PERCENT AUTO 0 % (0-2); EOSINOPHILS ABSOLUTE AUTO 0.13 K/mm3 (0.00-0.68); EOSINOPHILS PERCENT AUTO 2 % (0-6); Hematocrit 32.1 % (37.0-53.0); Hemoglobin 10.1 g/dL (13.5-17.5); IMMATURE GRAN ABSOLUTE AUTO 0.02 K/mm3 (0.00-0.10); IMMATURE GRAN PERCENT AUTO 0 % (0-1); LYMPHOCYTES ABSOLUTE AUTO 0.38 K/mm3 (0.84-5.20); LYMPHOCYTES PERCENT AUTO 5 % (21-46); MONOCYTES ABSOLUTE AUTO 0.53 K/mm3 (0.16-1.47); MONOCYTES PERCENT AUTO 6 % (4-13); Mean Corpuscular HGB 30.9 pg (26.0-34.0); Mean Corpuscular HGB Conc 31.5 g/dL (31.5-36.5); Mean Corpuscular Volume 98 fL (80-100); Mean Platelet Volume 9.8 fL (9.1-12.4); NEUTROPHILS ABSOLUTE AUTO 7.29 K/mm3 (1.96-9.15); NEUTROPHILS PERCENT AUTO 87 % (41-73); Platelet Count 215 K/mm3 (150-400); RDW Coefficient Variation 15.9 % (11.7-14.2); RDW Standard Deviation 56.8 fL (35.1-46.3); Red Blood Cell Count 3.27 M/mm3 (4.30-5.90); White Blood Cell Count 8.36 K/mm3 (4.00-11.30)
[2020-09-01 04:54] LABS: Albumin, Blood 1.4 g/dL (3.4-5.0); Anion Gap 7 mmol/L (6-16); Blood Urea Nitrogen 52 mg/dL (8-24); Bun/Creatinine Ratio 15.6 (12.0-20.0); CO2, Blood 26 mmol/L (21-32); Calcium, Blood 7.5 mg/dL (8.5-10.1); Chloride, Blood 99 mmol/L (98-108); Creatinine, Blood 3.33 mg/dL (0.60-1.20); Glomerular Filtration Rate 19 (60-); Glucose, Blood 481 mg/dL (70-99); Magnesium, Blood 1.7 mg/dL (1.6-2.4); Phosphorus, Blood 3.9 mg/dL (2.5-4.9); Sodium, Blood 132 mmol/L (136-145)
--- NOTE | 2020-09-01 06:27 | NUR ---
SHIFT SUMMARY PT RECEIVED PERITONEAL DIALYSIS T/O THE NIGHT AND TOLERATED WELL WITHOUT EVENT. HE HAS RESTED OFF AND ON T/O THE SHIFT. PT MEDICATED X1 FOR PAIN THIS SHIFT. IV ANTIBIOTICS CONTINUED ORDERED. PT HAD SOME CONCERNS ABOUT HIS INSULIN AND FELT THAT HE WAS NOT GETTING ADEQUATE COVERAGE WITH WHAT WAS CURRENTLY ORDERED. PT RECEIVED LONG ACTING INSULIN YESTERDAY AFTERNOON AND COVERAGE WITH SHORT ACTING BEFORE DINNER. INSULIN IS ORDERED THE WAY PT TAKES IT AT HOME, AND THAT WAS EXPLAINED TO PT. PT DID NOT REMEBER RECEIVING LONG ACTING INSULIN YESTERDAY, AND DID NOT SEEM TO UNDERSTAND HIS INSULIN ORDERS HERE. PT EDUCATED ON HIS CURRENT INSULIN ORDERS AND I EXPLAINED THAT IT WAS ORDERED HOW HE TAKES IT AT HOME. DR. GARCIA CALLED. HE WAS NOTIFIED OF PT BG, AND OF PT AND CONCERNS THAT HE WAS NOT GETTING ADEQUATE COVERAGE WITH HIS CURRENT INSULIN REGIMEN. HS COVERAGE ADDED SO THAT PT CAN RECEIVE COVERAGE AT BEDTIME. PT NOTIFIED OF UPDATED ORDERS AND HE SEEMED HAPPY WITH THIS. NO ACUTE CHANGES OVER NIGHT. ASSESSMENT UNCHANGED. BED IN LOWEST POSITION, CALL LIGHT WITHIN REACH.
--- NOTE | 2020-09-01 06:33 | NUR ---
INSULIN ORDER PT AND SPOUSE FELT THAT HE WAS NOT RECEIVING ADEQUATE COVERAGE WITH INSULIN BG REMAINED HIGH, PT WAS RECEIVING INSULIN BEFORE MEAL TIMES, AND LONG ACTING ONCE DAILY. INSULIN WAS ORDERED THE WAY PT TAKES IT AT HOME. THESE CONCERNS WERE ADDRESSED WITH THE DOCTOR AND INSULIN ORDERS WERE CHANGED FOR COVERAGE AT BEDTIME.
--- NOTE | 2020-09-01 07:23 | NUR ---
NOTIFIED B.S. W/MORNING LABS 481. CHANGE SLIDING SCALE TO HIGH AND RECHECK IN 2 HOURS.
--- NOTE | 2020-09-01 07:41 | NUR ---
ADVISED PATIENT WANTS STOOL SOFTENER
[2020-09-01 09:28] LABS: Appearance, Body Fluid Hazy (Clear); Automated BF WBC Count 1.129 K/mm3 (0-999); Body Fluid WBC Count 1129 /mm3 (0-999); Color, Body Fluid No color (None-Yellow)
[2020-09-01 09:56] LABS: RBC Count, Body Fluid 360 /mm3 (0-0)
--- NOTE | 2020-09-01 10:02 | NUR ---
NOTIFIED B.S 397. NO NEW MED. WILL RECHECK PRIOR TO LUNCH AND GIVE HIGH SLIDING SCALE.
--- NOTE | 2020-09-01 10:28 | NUR ---
DIALYSIS/PD TO ROOM 309 FOR PD DC. PT ON PHONE WITH , CONCERNS OVER AMT OF USE OF 4.25% DEXTROSE SOLUTION. PT CONCERNED ABOUT DAMAGING PERITONEAL MEMBRANE. JOSE LUIS HODGE RN EXPLAINED TO PT AND HIS WHAT IS SUPPLIED AT [facility] VS WHAT THEY HAVE AT HOME. PT UNHAPPY THAT WE DO NOT HAVE THE SOLUTION THEY USE. ACCESS CLAMPED AND CLEANED WITH SOLUTION FOR 60 SECONDS, LAB CELL COUNT PULLED PER PROTOCOL AND LABELED BY RN FOR LABS. FLUID CLOUDY. PD DC'D PER PROTOCOL, PT TOLERATED WELL. EXPLAINED WE WILL RETURN THIS EVENING TO RESUME HIS TREATMENT. RYANN
[2020-09-01 11:00] LABS: Total Cell Count, Body Fluid 100
[2020-09-01 11:24] LABS: Vancomycin, Random 14.7 ug/mL
--- NOTE | 2020-09-01 11:58 | NUR ---
NOTIFIED B.S. 414. GIVE HIGH SLIDING SCALE INSULIN AND RECHECK IN 2 HOURS.
--- NOTE | 2020-09-01 14:08 | NUR ---
REVIEW D'C. SPENT OVER ONE HOUR REVIEWING D'C AFTER HAVING S.O. DO TUBE FEEDING. AWARE HH WILL BE OUT TOMORROW. GO OVER ALL MEDS AND HOW TO GIVE. GIVEN 2 SYRINGE PACKS FOR TUBE FEEDING. TAPE FOR DRESSING GIVEN. BRUISING DAIJA ARMS. ANSWER ALL QUESTIONS. VERBALIZES UNDERSTANDING. IN W/C TO POV. WITH MULTIPLE BELONGINGS TAKEN DOWN.
--- NOTE | 2020-09-01 16:54 | NUR ---
ALERT. ORIENTED. VARIOUS CONCERNS FROM PATIENT AND ABOUT BLOOD SUGAR AND BLOOD PRESSURE WITH AWARE. MEDICATED ONCE FOR ABD HERNIA PAIN WITH TOLERABLE RESULTS. UNLABORED RESPIRATIONS. IV PATENT. PERITONEAL DIALYSIS AT NIGHT. WCTM
--- NOTE | 2020-09-01 17:38 | NUR ---
NOTIFIED VOMIT 900 ML BROWN FLUID. HAD SOME TEA. WILL SEND FOR [facility].
--- NOTE | 2020-09-01 20:21 | NUR ---
dialysis - PD. pt c/o nausea and vomiting connected to tx per protocol under aseptic technique. pt quiet and slept through entire procedure. nuria
--- NOTE | 2020-09-02 03:27 | NUR ---
PHYSICIAN COMMUNICATION CONTACTED SPEECH AND LANGUAGE TUTOR PHYSICIAN, DR GARCIA, TO NOTIFY HIM THAT THE PATIENT HAS HAD 700 ML OF DARK BROWN EMESIS OUT THIS SHIFT, ZOFRAN INEFFECTIVE FOR NAUSEA, AND THAT HE HS BEEN HAVING HYPOACTIVE BOWEL TONES, ESPECIALLY IN THE RLQ. DISTENDED FIRM ABDOMEN ON PERITONEAL DIALYSIS. REPORTED CT RESULTS ON ADMIT. DR GARCIA SAID TO INSERT AN NG TUBE IS PT AGREES AND ORDERED REGLAN 10 MG IV EVERY 6 HOURS NEEDED.
--- NOTE | 2020-09-02 03:59 | NUR ---
SPOKE WITH PATIENT AND HIS ABOUT DR GARCIA'S RECOMMENDATION OF INSERTING AN NG TUBE, EXPLAINING THE PURPOSE OF IT AND THE BENEFITS. PATIENT AND ARE AGREEABLE TO THE PROCEDURE.
[2020-09-02 05:25] LABS: BASOPHILS ABSOLUTE AUTO 0.02 K/mm3 (0.00-0.23); BASOPHILS PERCENT AUTO 0 % (0-2); EOSINOPHILS PERCENT AUTO 3 % (0-6); Hematocrit 37.4 % (37.0-53.0); Hemoglobin 11.7 g/dL (13.5-17.5); IMMATURE GRAN ABSOLUTE AUTO 0.03 K/mm3 (0.00-0.10); IMMATURE GRAN PERCENT AUTO 0 % (0-1); LYMPHOCYTES ABSOLUTE AUTO 0.42 K/mm3 (0.84-5.20); LYMPHOCYTES PERCENT AUTO 6 % (21-46); MONOCYTES ABSOLUTE AUTO 0.43 K/mm3 (0.16-1.47); MONOCYTES PERCENT AUTO 6 % (4-13); Mean Corpuscular HGB 30.6 pg (26.0-34.0); Mean Corpuscular HGB Conc 31.3 g/dL (31.5-36.5); Mean Corpuscular Volume 98 fL (80-100); Mean Platelet Volume 9.9 fL (9.1-12.4); NEUTROPHILS PERCENT AUTO 85 % (41-73); Platelet Count 253 K/mm3 (150-400); RDW Coefficient Variation 15.5 % (11.7-14.2); RDW Standard Deviation 56.1 fL (35.1-46.3); Red Blood Cell Count 3.82 M/mm3 (4.30-5.90)
[2020-09-02 05:46] LABS: Albumin, Blood 1.3 g/dL (3.4-5.0); Anion Gap 5 mmol/L (6-16); Blood Urea Nitrogen 47 mg/dL (8-24); Bun/Creatinine Ratio 14.2 (12.0-20.0); CO2, Blood 30 mmol/L (21-32); Calcium, Blood 7.6 mg/dL (8.5-10.1); Chloride, Blood 97 mmol/L (98-108); Creatinine, Blood 3.31 mg/dL (0.60-1.20); Glomerular Filtration Rate 20 (60-); Glucose, Blood 348 mg/dL (70-99); Magnesium, Blood 1.8 mg/dL (1.6-2.4); Phosphorus, Blood 3.8 mg/dL (2.5-4.9); Potassium, Blood 3.4 mmol/L (3.5-5.5); Sodium, Blood 132 mmol/L (136-145); Vancomycin, Random 21.7 ug/mL
--- NOTE | 2020-09-02 06:17 | NUR ---
SHIFT SUMMARY PATIENT ALERT AND ORIENTED. MEDICATED NEEDED PER EMAR FOR NAUSEA. NG TUBE INSERTED TO HELP MANAGE NAUSEA AND VOMITING PER MD. IVS PATENT AND FLUSHED. BED IN LOWEST POSITION WITH WHEELS LOCKED AND ALARM ON. CALL LIGHT WITHIN REACH. REPORT GIVEN TO ONCOMING RN.
--- NOTE | 2020-09-02 06:47 | NUR ---
PHYSICIAN COMMUNICATION DR HOGAN CAME TO PT ROOM AND ASKED HOW HE WAS DOING. THIS RN EXPLAINED THAT THE PATIENT HAD BEEN HAVING BOUTS OF VOMITING OVERNIGHT AND NOW HAS AN NG TUBE. DR HOGAN SAID TO ORDER 10 MG IV POTASSIUM AND NOT TO GIVE THE ELIXIR.
[2020-09-02 09:49] LABS: Automated BF WBC Count 0.297 K/mm3 (0-999); Body Fluid WBC Count 297 /mm3 (0-999)
[2020-09-02 10:22] LABS: RBC Count, Body Fluid 93 /mm3 (0-0)
[2020-09-02 10:41] LABS: Appearance, Body Fluid Hazy (Clear); Color, Body Fluid L Yellow (None-Yellow); Total Cell Count, Body Fluid 100
[2020-09-02 11:20] LABS: Hematocrit 39.6 % (37.0-53.0); Hemoglobin 12.7 g/dL (13.5-17.5)
--- NOTE | 2020-09-02 12:53 | NUR ---
DIALYSIS-PD DC'ED TX AT 0830. FLUID CLEAR BUT HAD A LARGE PINKISH TISSUE IN IT. CALLED ERICKA HOGAN AND TOOK IT TO THE PATHOLOGY DEPARTMENT IN THE LAB. ID [id number] AND UF [id number]. PT NOW HAS A NG TUBE IN PLACE.
--- NOTE | 2020-09-02 13:27 | NUR ---
PER TO CHANGE SLIDING SCALE TO MED SLIDING SCALE.
--- NOTE | 2020-09-02 15:16 | NUR ---
DIALYSIS HOOKED UP PATIENT TO PD. ECHO BEING DONE. SUCTION TO NG OFF AND WILL ADVANCE NG THEN TURN BACK ON.
--- NOTE | 2020-09-02 15:31 | NUR ---
DIALYSIS-PD IN AND OUT FLUSH STARTED AT 1430. WAITED FOR INITIAL DRAIN TO COMPLETE DUE TO POSSIBILITY OF ALARMS. ALARM LOW FLOW X2. BYPASSED AND STARTED FIRST FILL. SITE CLEAR.
[2020-09-02 17:34] LABS: Hematocrit 37.9 % (37.0-53.0); Hemoglobin 11.9 g/dL (13.5-17.5)
--- NOTE | 2020-09-02 17:53 | NUR ---
ALERT. ORIENTED. LESS DRAINAGE FROM NG TUBE WITH COLOR MORE LIGHT BROWN. HOOKED TO DIALYSIS FOR WASH, HAD ECHO, AND ABD XRAY. TO CONSULT. MEDICATED FOR NOSE PAIN WITH TOLERABLE RESULTS. ABLE TO MAKE NEEDS KNOWN. BLACK PULLER- ADRIAN- ASSISTED WITH PUTTING NG DOWN LITTLE FURTHER. WCTM
--- NOTE | 2020-09-02 19:46 | NUR ---
DIALYSIS-PD DC'ED IN AND OUT TX PER PROTOCAL AND CONNECTED NIGHT TIME PD TX. PT MORE ALERT AND ORIENTED. SITE CLEAR. ID [id number] AND UF [id number]. NIGHT TIME TX. 9.5 HOURS. 1300 TOTAL VOLUME. 1800 DWELL, 1900 LAST FILL WITH ANTIBIOTICS. IN AND OUT TX SOLUTION CLEAR.
[2020-09-02 22:57] LABS: Hematocrit 35.5 % (37.0-53.0); Hemoglobin 11.2 g/dL (13.5-17.5)
[2020-09-03 04:39] LABS: Hematocrit 34.4 % (37.0-53.0); Hemoglobin 10.8 g/dL (13.5-17.5)
[2020-09-03 04:56] LABS: Anion Gap 5 mmol/L (6-16); Blood Urea Nitrogen 37 mg/dL (8-24); Bun/Creatinine Ratio 11.3 (12.0-20.0); CO2, Blood 31 mmol/L (21-32); Calcium, Blood 7.1 mg/dL (8.5-10.1); Chloride, Blood 100 mmol/L (98-108); Creatinine, Blood 3.26 mg/dL (0.60-1.20); Glomerular Filtration Rate 20 (60-); Glucose, Blood 168 mg/dL (70-99); Magnesium, Blood 1.7 mg/dL (1.6-2.4); Phosphorus, Blood 3.5 mg/dL (2.5-4.9); Potassium, Blood 2.7 mmol/L (3.5-5.5); Sodium, Blood 136 mmol/L (136-145)
--- NOTE | 2020-09-03 06:26 | NUR ---
SHIFT SUMMARY PATIENT ALERT AND ORIENTED. WAS MEDICATED ONCE PER EMAR FOR PAIN FROM HIS HERNIA. DR CHRISTENSEN REMOVED PATIENT'S NG TUBE. PATIENT HAD NO COMPLAINTS OF NAUSEA OR VOMITING OVERNIGHT. IVS PATENT AND FLUSHED. BED IN LOWEST POSITION WITH WHEELS LOCKED AND ALARM ON. CALL LIGHT WITHIN REACH. REPORT GIVEN TO ONCOMING RN.
[2020-09-03 08:51] LABS: Automated BF WBC Count 0.278 K/mm3 (0-999); Body Fluid WBC Count 278 /mm3 (0-999)
[2020-09-03 10:19] LABS: RBC Count, Body Fluid 37 /mm3 (0-0)
[2020-09-03 10:43] LABS: Total Cell Count, Body Fluid 100
[2020-09-03 10:44] LABS: Appearance, Body Fluid Clear (Clear); Color, Body Fluid No color (None-Yellow)
--- NOTE | 2020-09-03 10:46 | NUR ---
DIALYSIS-PD PT SAYS HE FEELS BETTER. STANDING UP BY BED. DC'ED TX PER PROTOCAL. TOOK SAMPLE FOR CELL CT. NO LONGER HAS NG TUBE. UF [id number] ID [id number].
--- NOTE | 2020-09-03 14:30 | NUR ---
09/03/20 1430 ERICA MILLER History, Chart, Medications and Allergies reviewed before start of procedure. 3-LEAD EKG REVIEWED WITH PHYSICIAN PRIOR TO START OF PROCEDURE. O2 VIA POM INTACT THROUGHOUT SEDATION/PROCEDURE. MONITOR INTACT WITH CONTINUOUS PULSE OXIMETRY AND INTERMITTENT BP. MAC WITH DR. VICTOR.
[2020-09-03] MEDS ORDERED: PANT40 PO (19:32)
[2020-09-03] MEDS ORDERED: INSULANPEN SC (19:33)
[2020-09-03] MEDS ORDERED: HUMALOG KW100 UNIT/1 SC (19:33)
--- NOTE | 2020-09-03 19:47 | NUR ---
DISCHARGE INSTRUCTIONS REVIEWED WITH PT. IV ALREADY DC'D. BOTH SPOUSE AND PT UPSET ABOUT TIME OF DISCHARGE, DISCHARGE ORDERS HAD TO BE MANUALLY PLACED AND VERBAL ORDERS RECEIVED FROM DR ANDERSON. CALL AND SPOKE WITH [facility] AFTER RX FAXED AND NOTIFIED THEM THAT PT WILL BE DOWN SHORTLY TO GET MEDICATIONS. PT ESCORTED OUT VIA W/C AT 1949.
[2020-10-05] MEDS ORDERED: Norco 5-325 Ta1 EACH PO (09:39)
[2020-10-05] MEDS ORDERED: INSULANPEN SC (09:40)
[2020-10-05] MEDS ORDERED: HUMALOG100 UNIT/1 (09:40)
== END 2020-09-03 19:52 | disposition home or self-care (01) | DRG 391 ==
LOC: ER 18:10 → ICUW 22:15 → ICUE 22:15 → MEDS 22:15 → ICUE 23:59 → MEDS 08-31 18:28
PROVIDERS: Family Medicine; Internal Medicine Gastroenterology; Internal Medicine Nephrology; Pharmacist; Student in an Organized Health Care Education/Training Program; ADMIT Internal Medicine
PROC: 3E1M39Z Irrigation of Peritoneal Cavity using Dialysate, Percutaneous Approach (ICD-10-PCS; 2020-09-01)
PROC: 0DH67UZ Insertion of Feeding Device into Stomach, Via Natural or Artificial Opening (ICD-10-PCS; 2020-09-01)
PROC: 0DJ08ZZ Inspection of Upper Intestinal Tract, Via Natural or Artificial Opening Endoscopic (ICD-10-PCS; principal; 2020-09-03 15:00)
DX: K52.9 Noninfective gastroenteritis and colitis, unspecified (principal); N18.6 End stage renal disease; J96.01 Acute respiratory failure with hypoxia; K20.91 Esophagitis, unspecified with bleeding; J18.9 Pneumonia, unspecified organism; E87.1 Hypo-osmolality and hyponatremia; N25.81 Secondary hyperparathyroidism of renal origin; I13.2 Hypertensive heart and chronic kidney disease with heart failure and with stage 5 chronic kidney disease, or end stage renal disease; Z20.822 Contact with and (suspected) exposure to COVID-19; Z99.2 Dependence on renal dialysis; E87.6 Hypokalemia; E10.22 Type 1 diabetes mellitus with diabetic chronic kidney disease; I95.9 Hypotension, unspecified; D63.1 Anemia in chronic kidney disease; E10.51 Type 1 diabetes mellitus with diabetic peripheral angiopathy without gangrene; I50.9 Heart failure, unspecified; I25.10 Atherosclerotic heart disease of native coronary artery without angina pectoris; E78.5 Hyperlipidemia, unspecified; E03.9 Hypothyroidism, unspecified; Z79.899 Other long term (current) drug therapy; Z79.4 Long term (current) use of insulin; Z79.01 Long term (current) use of anticoagulants; I25.2 Old myocardial infarction; Z98.890 Other specified postprocedural states; Z95.5 Presence of coronary angioplasty implant and graft; Z89.422 Acquired absence of other left toe(s)
CPT/HCPCS: 36415; 36593; 71045; 74018; 74176; 80053; 80069; 80202; 82271; 82947; 83605; 83690; 83735; 84100; 85014; 85018; 85025; 87040; 87070; 87075; 87205; 88108; 88305; 89051; 93306; 96365; 96367; 99285-25; A9270; C9113; J0690; J0692; J0713; J1644; J1815; J2370; J2405; J2543; J2704; J2765; J2997; J3010; J3370; J3480; J7030; J7050; J7120; P9046; U0004

== ENCOUNTER 2020-09-16 11:39 | Emergency (ER) | payer MEDICARE ==
[~2020-09-16] VITALS: Ht 177.8 cm; Wt 76.2 kg
[~2020-09-16 11:39] MED LIST changes: +HUMALOG KW100 UNIT/1 SC; +INSULANPEN SC; +LISI5 PO; +Norco 5-325 Ta1 EACH PO; +PANT40 PO; +TOPROL XL25 MG PO
[2020-09-16 13:26] LABS: BASOPHILS PERCENT AUTO 2 % (0-2); EOSINOPHILS ABSOLUTE AUTO 0.28 K/mm3 (0.00-0.68); EOSINOPHILS PERCENT AUTO 7 % (0-6); Hematocrit 40.2 % (37.0-53.0); Hemoglobin 12.3 g/dL (13.5-17.5); IMMATURE GRAN ABSOLUTE AUTO 0.01 K/mm3 (0.00-0.10); IMMATURE GRAN PERCENT AUTO 0 % (0-1); LYMPHOCYTES PERCENT AUTO 19 % (21-46); MONOCYTES ABSOLUTE AUTO 0.47 K/mm3 (0.16-1.47); MONOCYTES PERCENT AUTO 11 % (4-13); Mean Corpuscular HGB 30.8 pg (26.0-34.0); Mean Corpuscular HGB Conc 30.6 g/dL (31.5-36.5); Mean Corpuscular Volume 101 fL (80-100); Mean Platelet Volume 9.3 fL (9.1-12.4); NEUTROPHILS ABSOLUTE AUTO 2.64 K/mm3 (1.96-9.15); NEUTROPHILS PERCENT AUTO 62 % (41-73); Platelet Count 283 K/mm3 (150-400); RDW Coefficient Variation 16.6 % (11.7-14.2)
[2020-09-16 13:44] LABS: Albumin, Blood 1.9 g/dL (3.4-5.0); Albumin/Globulin Ratio 0.5 (0.8-1.8); Bilirubin, Total 0.3 mg/dL (0.1-1.0); Bun/Creatinine Ratio 11.9 (12.0-20.0); Calcium, Blood 7.9 mg/dL (8.5-10.1); Creatinine, Blood 4.05 mg/dL (0.60-1.20); Globulin, Blood 4.1 g/dL (2.2-4.0); International Normalized Ratio 1.13; Potassium, Blood 5.2 mmol/L (3.5-5.5); Prothrombin Time Results 12.1 Sec (9.7-11.5)
[2020-09-16] MEDS ORDERED: AMLODIPINE BESY10 MG PO (16:18)
[2020-09-16] MEDS ORDERED: TOUJEO SOL300 UNIT/2 (16:18)
[2020-09-16] MEDS ORDERED: ELIQUIS2.5 M1 PO (16:18)
[2020-09-16] MEDS ORDERED: TORSE20 PO (16:19)
[2020-09-16] MEDS ORDERED: LISI5 PO (16:19)
[2020-09-16] MEDS ORDERED: PANTOPRAZOLE SO40 M2 PO (16:19)
[2020-09-16] MEDS ORDERED: PLAVIX75 MG PO (16:19)
[2020-09-16] MEDS ORDERED: HUMALOG KW100 UNIT/1 SC (16:20)
[2020-09-16] MEDS ORDERED: DOXAZOSIN MESYLA4 M2 PO (16:20)
[2020-09-16] MEDS ORDERED: Synthroid/Levo0.2 MG PO (16:20)
[2020-09-16] MEDS ORDERED: ZOLOFT50 MG PO (16:21)
[2020-09-16] MEDS ORDERED: METOPROLOL SUCC25 MG PO (16:21)
[2020-09-16] MEDS ORDERED: LIPITOR80 MG PO (16:21)
[2020-09-16 16:41] LABS: Automated BF WBC Count 0.239 K/mm3 (0-999); Body Fluid WBC Count 239 /mm3 (0-999)
[2020-09-16 17:04] LABS: Amylase, Body Fluid <2 U/L
[2020-09-16 17:39] LABS: RBC Count, Body Fluid 6 /mm3 (0-0)
[2020-09-16 18:06] LABS: Color, Body Fluid No color (None-Yellow); Total Cell Count, Body Fluid 100
[2020-09-16 18:07] LABS: Appearance, Body Fluid Clear (Clear)
[2020-10-05] MEDS ORDERED: Norco 5-325 Ta1 EACH PO (09:39)
[2020-10-05] MEDS ORDERED: HUMALOG100 UNIT/1 (09:40)
[2020-10-05] MEDS ORDERED: INSULANPEN SC (09:40)
== END 2020-09-16 18:38 | disposition home or self-care (01) ==
LOC: ER 11:39
PROVIDERS: Physician Assistant
DX: R79.89 Other specified abnormal findings of blood chemistry (principal); I12.9 Hypertensive chronic kidney disease with stage 1 through stage 4 chronic kidney disease, or unspecified chronic kidney disease; I25.2 Old myocardial infarction; E10.51 Type 1 diabetes mellitus with diabetic peripheral angiopathy without gangrene; E10.22 Type 1 diabetes mellitus with diabetic chronic kidney disease; E78.5 Hyperlipidemia, unspecified; Z79.01 Long term (current) use of anticoagulants; Z79.899 Other long term (current) drug therapy; Z79.02 Long term (current) use of antithrombotics/antiplatelets; Z79.4 Long term (current) use of insulin; Z99.2 Dependence on renal dialysis; Z87.891 Personal history of nicotine dependence
CPT/HCPCS: 36415; 51702; 74176; 80053; 82150; 83605; 83690; 85025; 85610; 85730; 87040; 87070; 87205; 89051; 99283-25

== ENCOUNTER 2020-10-07 07:01 | Day surgery (SDC) | payer MEDICARE ==
[~2020-10-07] VITALS: Ht 177.8 cm; Wt 77.1 kg
[~2020-10-07 07:01] MED LIST changes: +AMLODIPINE BESY10 MG PO; +DOXAZOSIN MESYLA4 M2 PO; +ELIQUIS2.5 M1 PO; +LIPITOR80 MG PO; +METOPROLOL SUCC25 MG PO; +PANTOPRAZOLE SO40 M2 PO; +PLAVIX75 MG PO; +Synthroid/Levo0.2 MG PO; +TORSE20 PO; +TOUJEO SOL300 UNIT/2
--- NOTE | 2020-10-07 07:53 | NUR ---
Ambulatory in Day Surgery History, Chart, Medications and Allergies reviewed before start of procedure. Lungs clear T/O to Auscultation. Patient confirms NPO status and agrees with scheduled surgery. Pre-Op teaching done. Pt verbalizes understanding.
--- NOTE | 2020-10-07 10:42 | NUR ---
RECIEVED PATIENT FROM PACU VSS NO CHANGE DRESSING INTACT. LOIS DENIES PAIN REQUESTS HOT TEA AND GIVEN TO PATIENT
--- NOTE | 2020-10-07 11:14 | NUR ---
Discharge instructions reviewed with patient. Patient verbalizes understanding. Copy given to patient to take home. Patient States Post-Procedure ride home has been arranged. Discharged via wheelchair to private car for ride home.
--- NOTE | 2020-10-07 11:14 | NUR ---
INSTRUCTED PER DOCTOR TO NOT RESUME PLAVIX. PATIENT IS ABLE TO RESUME ELIQUIS ON 10/08 THROUGH 10/12 AND STOP TAKING ON 10/13 BEFORE NEXT SURGERY.
== END 2020-10-07 23:39 | disposition home or self-care (01) ==
LOC: ORSCMMR 07:01 → ORD 08:30 → ORSCMMR 23:39
PROVIDERS: Surgery
PROC: 05HM33Z Insertion of Infusion Device into Right Internal Jugular Vein, Percutaneous Approach (ICD-10-PCS; principal; 2020-10-07 08:30)
DX: N18.6 End stage renal disease (principal); Z99.2 Dependence on renal dialysis; K40.20 Bilateral inguinal hernia, without obstruction or gangrene, not specified as recurrent; I10 Essential (primary) hypertension; E10.8 Type 1 diabetes mellitus with unspecified complications; E03.9 Hypothyroidism, unspecified; I48.91 Unspecified atrial fibrillation; Z79.01 Long term (current) use of anticoagulants; Z79.4 Long term (current) use of insulin; Z87.891 Personal history of nicotine dependence; I25.2 Old myocardial infarction; K21.9 Gastro-esophageal reflux disease without esophagitis; I25.10 Atherosclerotic heart disease of native coronary artery without angina pectoris; Z79.899 Other long term (current) drug therapy
CPT/HCPCS: 77001; 82947; 84132; C1750; J0690; J1100; J1642; J1644; J2250; J2370; J2405; J2704; J3010; J7030

== ENCOUNTER 2020-10-15 10:15 | Day surgery (SDC) | payer MEDICARE ==
[~2020-10-15] VITALS: Ht 177.8 cm; Wt 76.9 kg
--- NOTE | 2020-10-15 11:04 | NUR ---
PT TO SDS VIA . REPORTS NPO SINCE 190 LAST NOC. History, Chart, Medications and Allergies reviewed before start of procedure. Lungs clear T/O to Auscultation. Patient reports completing Chlorhexadine shower X2 prior to admission to hospital. GOLD [place] BAND IN PLACE, TAPED, CONSENT FOR REFUSAL OF REMOVAL SIGNED. CHEM BG 154. K+ DRAWN AND SENT TO LAB. GLASSES/DENTURES REMOVED AND PLACED IN PACU.
--- NOTE | 2020-10-15 13:31 | NUR ---
10/15/20 1331 NEYMAR,[facility] ABDOMEN PERITONEAL DIALYSIS SITE AND CATHATER PREPPED WITH CHLORAPREP PER DR MONTILLA ORDERS, OPSITE PLACED OVER SITE AFTER PREP COMPLETED, PER DR MONTILLA.
--- NOTE | 2020-10-15 19:20 | NUR ---
S/P ROBOTIC LAP. HERNIA SURGERY, ARRIVED FROM PACU VIA ZACARIAS, MERY, A&OX4, ORIENTED TO ROOM AND CALL SYSTEM, DENIES ANY NEED FOR PAIN MEDS AT THIS TIME, ICE CHIPS AND CLEAR LIQUIDS GIVEN, REPORT GIVEN TO EBER GE.
--- NOTE | 2020-10-16 05:08 | NUR ---
SHIFT SUMMARY POD#1 HERNIA REPAIR. AAOX4. DISCOMFORT CONTROLLED WITH X1 NORCO. NO NAUSEA/EMESIS. ABD INCISION WITH GAUZE C/D/I. PT TOLERATING DIET WELL, UP TO DANGLE AT BEDSIDE THIS AM TO ENJOY TEA. DECREASED O2 FROM 4L TO 2L THIS AM, CONTINUE TO WEAN TOLERATED. PERMACATH TO UPPER CHEST C/D/I. PERITONEAL DIALYSIS CATHETER TO RIGHT LOWER ABD C/D/I. PT CURRENTLY SITTING UP IN BED READING A BOOK, NADN, WITH CALL LIGHT IN REACH.
--- NOTE | 2020-10-16 08:35 | NUR ---
PT APPEARS TO BE RESTING COMFORTABLY IN BED AT THIS TIME. ABD SOFT, SOME REPORTED TENDERNESS TO R SIDE AND GROIN W/PALPATIONL. GAUZE AND TEGADERM COVERING SURGICAL SITES C/D/I. PT REPORTS PAIN 2/10 AND TOLERABLE AT THIS TIME.
--- NOTE | 2020-10-16 12:11 | NUR ---
DISCHARGE PT DISCHARGED HOME FROM UNIT AT APROX 1208. PT GIVEN WRITTEN AND VERBAL DISCHARGE INSTUCTIONS AND VERBALIZED UNDERSTANDING OF THESE INSTRUCTIONS. IV REMOVED. WRITTEN RX FOR PAIN MEDICATION GIVEN TO PT, COPY IN CHART. WC ASSIST TO CAR.
== END 2020-10-16 12:20 | disposition home or self-care (01) ==
LOC: ORSCMMR 10:15 → ORD 11:45 → ORSCMMR 11:45 → SURS 18:33 → ORSCMMR 18:33 → SURS 10-16 12:20
PROVIDERS: Surgery
PROC: 8E0W4CZ Robotic Assisted Procedure of Trunk Region, Percutaneous Endoscopic Approach (ICD-10-PCS; principal; 2020-10-15 11:45)
PROC: 0YU64JZ Supplement Left Inguinal Region with Synthetic Substitute, Percutaneous Endoscopic Approach (ICD-10-PCS; principal; 2020-10-15 11:45)
PROC: 0YU50JZ Supplement Right Inguinal Region with Synthetic Substitute, Open Approach (ICD-10-PCS; principal; 2020-10-15 11:45)
DX: K40.00 Bilateral inguinal hernia, with obstruction, without gangrene, not specified as recurrent (principal); I25.2 Old myocardial infarction; I48.0 Paroxysmal atrial fibrillation; Z79.01 Long term (current) use of anticoagulants; I25.10 Atherosclerotic heart disease of native coronary artery without angina pectoris; K21.9 Gastro-esophageal reflux disease without esophagitis; E11.9 Type 2 diabetes mellitus without complications; E03.9 Hypothyroidism, unspecified; Z79.02 Long term (current) use of antithrombotics/antiplatelets; Z79.899 Other long term (current) drug therapy
CPT/HCPCS: 49507; 49650; S2900; 82947; 84132; 94760; A9270; C1781; J0690; J1100; J1885; J2370; J2405; J2704; J3010; J7030

== ENCOUNTER 2020-10-28 17:58 | Inpatient (IN) | payer MEDICARE ==
[~2020-10-28] VITALS: Ht 165.1 cm; Wt 74.8 kg
[~2020-10-28 17:58] MED LIST changes: +HUMALOG100 UNIT/1 SC
[2020-10-28 18:21] LABS: PCO2 Arterial 36.4 mmHg (35-45); pH Blood Arterial 7.49 (7.35-7.45)
[2020-10-28 18:30] LABS: BASOPHILS ABSOLUTE AUTO 0.07 K/mm3 (0.00-0.23); BASOPHILS PERCENT AUTO 1 % (0-2); EOSINOPHILS ABSOLUTE AUTO 0.21 K/mm3 (0.00-0.68); EOSINOPHILS PERCENT AUTO 3 % (0-6); Hematocrit 29.2 % (37.0-53.0); Hemoglobin 9.1 g/dL (13.5-17.5); IMMATURE GRAN ABSOLUTE AUTO 0.03 K/mm3 (0.00-0.10); IMMATURE GRAN PERCENT AUTO 0 % (0-1); LYMPHOCYTES PERCENT AUTO 10 % (21-46); MONOCYTES ABSOLUTE AUTO 0.61 K/mm3 (0.16-1.47); MONOCYTES PERCENT AUTO 8 % (4-13); Mean Corpuscular HGB 31.9 pg (26.0-34.0); Mean Corpuscular HGB Conc 31.2 g/dL (31.5-36.5); Mean Corpuscular Volume 103 fL (80-100); Mean Platelet Volume 9.6 fL (9.1-12.4); NEUTROPHILS PERCENT AUTO 78 % (41-73); Platelet Count 295 K/mm3 (150-400); RDW Coefficient Variation 14.9 % (11.7-14.2); RDW Standard Deviation 55.4 fL (35.1-46.3); Red Blood Cell Count 2.85 M/mm3 (4.30-5.90); White Blood Cell Count 7.82 K/mm3 (4.00-11.30)
[2020-10-28 18:58] LABS: Albumin, Blood 2.6 g/dL (3.4-5.0); Albumin/Globulin Ratio 0.7 (0.8-1.8); Bilirubin, Total 0.6 mg/dL (0.1-1.0); Bun/Creatinine Ratio 10.8 (12.0-20.0); Calcium, Blood 8.4 mg/dL (8.5-10.1); Creatinine, Blood 3.7 mg/dL (0.60-1.20); Globulin, Blood 3.9 g/dL (2.2-4.0); Potassium, Blood 4.8 mmol/L (3.5-5.5); Total Protein, Blood 6.5 g/dL (6.4-8.2); Troponin I 0.052 ng/mL (0.000-0.040)
[2020-10-28] MEDS ORDERED: AMLODIPINE BESY10 MG PO (19:34)
[2020-10-28] MEDS ORDERED: ZOLOFT50 MG PO (19:34)
[2020-10-28] MEDS ORDERED: TORSE20 PO (19:35)
[2020-10-28] MEDS ORDERED: LISI5 PO (19:36)
[2020-10-28] MEDS ORDERED: PANT40 PO (19:36)
[2020-10-28] MEDS ORDERED: TOUJEO SOL300 UNIT/2 SC (19:37)
[2020-10-28] MEDS ORDERED: DOXAZOSIN MESYLA4 M2 PO (19:37)
[2020-10-29 02:17] LABS: BASOPHILS ABSOLUTE AUTO 0.06 K/mm3 (0.00-0.23); BASOPHILS PERCENT AUTO 1 % (0-2); EOSINOPHILS ABSOLUTE AUTO 0.08 K/mm3 (0.00-0.68); EOSINOPHILS PERCENT AUTO 1 % (0-6); Hematocrit 31.6 % (37.0-53.0); IMMATURE GRAN ABSOLUTE AUTO 0.03 K/mm3 (0.00-0.10); IMMATURE GRAN PERCENT AUTO 1 % (0-1); LYMPHOCYTES ABSOLUTE AUTO 0.57 K/mm3 (0.84-5.20); LYMPHOCYTES PERCENT AUTO 9 % (21-46); MONOCYTES ABSOLUTE AUTO 0.52 K/mm3 (0.16-1.47); MONOCYTES PERCENT AUTO 8 % (4-13); Mean Corpuscular HGB 31.7 pg (26.0-34.0); Mean Corpuscular HGB Conc 31.6 g/dL (31.5-36.5); Mean Corpuscular Volume 100 fL (80-100); Mean Platelet Volume 9.3 fL (9.1-12.4); NEUTROPHILS ABSOLUTE AUTO 5.23 K/mm3 (1.96-9.15); NEUTROPHILS PERCENT AUTO 81 % (41-73); Platelet Count 255 K/mm3 (150-400); RDW Coefficient Variation 14.8 % (11.7-14.2); RDW Standard Deviation 54.4 fL (35.1-46.3); Red Blood Cell Count 3.15 M/mm3 (4.30-5.90); White Blood Cell Count 6.49 K/mm3 (4.00-11.30)
[2020-10-29 02:35] LABS: Albumin, Blood 2.7 g/dL (3.4-5.0); Albumin/Globulin Ratio 0.6 (0.8-1.8); Bilirubin, Total 0.6 mg/dL (0.1-1.0); Bun/Creatinine Ratio 9.9 (12.0-20.0); Calcium, Blood 8.6 mg/dL (8.5-10.1); Creatinine, Blood 2.83 mg/dL (0.60-1.20); Globulin, Blood 4.5 g/dL (2.2-4.0); Phosphorus, Blood 3.6 mg/dL (2.5-4.9); Potassium, Blood 4.2 mmol/L (3.5-5.5); Total Protein, Blood 7.2 g/dL (6.4-8.2)
--- NOTE | 2020-10-29 03:02 | NUR ---
PROVIDER SPOKE WITH DR COLLAZO REGARDING TROPONIN INCREASE FROM 0.052 TO 2.21. INFORMED OF JUST RECEIVING DIALYSIS. INFORMED THAT PT DENIES HAVING CP/PRESSURE/DIAPHORESIS CURRENTLY. INFORMED PT IS ON ELIQUIS, BUT WAS NOT GIVEN NIGHT DOSE DUE TO DIALYSIS AND TIMING OF AM DOSE. DR COLLAZO STATES TO AWAIT FOR NEXT SERIAL TROPNIN RESULT OR CALL IF PT BEGINS TO EXPERIENCE CP OR OTHER WORRYING S/SX.
--- NOTE | 2020-10-29 05:36 | NUR ---
SHIFT SUMMARY PT ADMITTED FROM ED, HEMODIALYSIS UPON ARRIVAL, 2.5L PULLED OFF W/ DELONDA HODGE. PT AXO, PLEASANT. PT TO ROOM ON 15L NRB, TITRATED TO 10-12 HIFLO CURRENTLY. LUNGS VERY COARSE UPON ARRIVAL, HAVE DECREASED SIGNIFICANTLY IN COARSENESS. PT CONTINENT. HEMODIALYSIS AND PD PORTS STABLE AND ATTACHED TO PERSON. WCTM.
[2020-10-29 05:54] LABS: Magnesium, Blood 2.2 mg/dL (1.6-2.4)
[2020-10-29 05:55] LABS: Albumin, Blood 2.7 g/dL (3.4-5.0); Anion Gap 7 mmol/L (6-16); Blood Urea Nitrogen 27 mg/dL (8-24); Bun/Creatinine Ratio 9.8 (12.0-20.0); CO2, Blood 29 mmol/L (21-32); Calcium, Blood 8.4 mg/dL (8.5-10.1); Chloride, Blood 100 mmol/L (98-108); Creatinine, Blood 2.75 mg/dL (0.60-1.20); Glomerular Filtration Rate 23 (60-); Glucose, Blood 132 mg/dL (70-99); Phosphorus, Blood 3.5 mg/dL (2.5-4.9); Potassium, Blood 4.1 mmol/L (3.5-5.5); Sodium, Blood 136 mmol/L (136-145)
--- NOTE | 2020-10-29 09:37 | NUR ---
Spiritual care visit conducted. Patient immediately shares about his weariness in dealing with the symptoms and limitations of his medical conditions. He discusses family unit complications and also how proud he is of his two grown children. Patient talks about and dying and his peace with all of it and even his desire to not live a long drawn out life of suffering. I reinforce helpful attitudes and practices, explore sources of meaning and purpose and provide therapeutic listening, gentle on awake counselor and prayer. Patient responds well and shows signs of increased hope. Spiritual care will remain available to patient and family.
--- NOTE | 2020-10-29 13:52 | NUR ---
eCHOCARDIOGRAM COMPLETED.
--- NOTE | 2020-10-29 18:07 | NUR ---
PT REFUSED COVID SWAB HE IS FULLY VACCINATED, PER LEAD SOFTWARE QA ENGINEER STAFF PT CAN GO FOR ANGIO WITHOUT COVID SWAB WITH PROOF OF VACCINATION. PT WENT TO DIALYSIS TODAY WHERE THEY REMOVED 4L FLUID FROM HIM. BLOOD PRESSURES ARE SLIGHTLY SOFT. PT STS THAT HIS BREATHING HAS IMPROVED AFTER DIALYSIS. PT C/O PAIN AND DRYNESS TO LLE, ANTIBIOTIC OINTMENT WAS APPLIED TO LLE FOR RELIEF.
[2020-10-30 04:07] LABS: BASOPHILS ABSOLUTE AUTO 0.05 K/mm3 (0.00-0.23); BASOPHILS PERCENT AUTO 1 % (0-2); EOSINOPHILS ABSOLUTE AUTO 0.46 K/mm3 (0.00-0.68); EOSINOPHILS PERCENT AUTO 9 % (0-6); Hemoglobin 9.4 g/dL (13.5-17.5); IMMATURE GRAN ABSOLUTE AUTO 0.01 K/mm3 (0.00-0.10); IMMATURE GRAN PERCENT AUTO 0 % (0-1); LYMPHOCYTES ABSOLUTE AUTO 0.84 K/mm3 (0.84-5.20); LYMPHOCYTES PERCENT AUTO 16 % (21-46); MONOCYTES ABSOLUTE AUTO 0.64 K/mm3 (0.16-1.47); MONOCYTES PERCENT AUTO 12 % (4-13); Mean Corpuscular HGB 32.2 pg (26.0-34.0); Mean Corpuscular HGB Conc 32.4 g/dL (31.5-36.5); Mean Corpuscular Volume 99 fL (80-100); NEUTROPHILS ABSOLUTE AUTO 3.29 K/mm3 (1.96-9.15); NEUTROPHILS PERCENT AUTO 62 % (41-73); Platelet Count 253 K/mm3 (150-400); RDW Coefficient Variation 14.6 % (11.7-14.2); RDW Standard Deviation 53.8 fL (35.1-46.3); Red Blood Cell Count 2.92 M/mm3 (4.30-5.90); White Blood Cell Count 5.29 K/mm3 (4.00-11.30)
[2020-10-30 04:45] LABS: Magnesium, Blood 2.3 mg/dL (1.6-2.4)
[2020-10-30 04:47] LABS: Albumin, Blood 2.3 g/dL (3.4-5.0); Anion Gap 6 mmol/L (6-16); Blood Urea Nitrogen 42 mg/dL (8-24); Bun/Creatinine Ratio 11.4 (12.0-20.0); CO2, Blood 30 mmol/L (21-32); Calcium, Blood 8.3 mg/dL (8.5-10.1); Chloride, Blood 100 mmol/L (98-108); Glomerular Filtration Rate 16 (60-); Glucose, Blood 79 mg/dL (70-99); Phosphorus, Blood 4.7 mg/dL (2.5-4.9); Potassium, Blood 4.2 mmol/L (3.5-5.5); Sodium, Blood 136 mmol/L (136-145)
--- NOTE | 2020-10-30 05:34 | NUR ---
SHIFT SUMMARY NO ACUTE CHANGES THIS SHIFT. VSS. REMAINS AXO. IN SR. ON 5LNC WITH CLEARING LUNG SOUNDS BUT STILL PRESENT WITH SOME FINE CRACKLES. TROPONIN TRENDING DOWN. PT CONTINUES TO DENY CP/PRESSURE. HAS BEEN RESTING THIS SHIFT. WCTM.
--- NOTE | 2020-10-30 18:22 | NUR ---
NO ACUTE EVENTS T/O SHIFT. VSS. PLAN FOR ANGIOGRAM IN AM, PT TO BE NPO AFTER MIDNIGHT TONIGHT. RECEIVED DIALYSIS LATE IN THE SHIFT. PT HAD SUCESSFUL BM TODAY.
--- NOTE | 2020-10-30 23:11 | NUR ---
CARDIAC EVENT PT BEGINS SHIFT IN SR. AROUND 1950, PT BEGINS HAVING COUPLETS AND BIGEMINY. ASYMPTOMATIC. BP STABLE. 2013 - PT HAS NONSUSTAINING 11 BEAT RUN OF VTACH. 2014 - PT HAS 13 SECOND RUN OF WHAT APPEARS TO BE TORSADES DE POINTES (DISCUSSED WITH ICU NURSES AND PCU RIG MANAGER REGARDING CORRECT IDENTIFICATION). THIS RN TO ROOM BUT EVENT OVER AT THAT TIME, VSS. PT NOT APPEARING TO BE SYMPTOMATIC. DR TURPIN CALLED REGARDING THIS. THIS RN UPDATED THE PROVIDER ON THE PATIENTS ELECTROLYTES, BUT THESE WERE ALL DRAWN PRE DIALYSIS THIS AM. THIS RN ASKED PROVIDER IF WE COULD RUN A STAT CHEM8 W/ MG, DR OPTS TO PLACE 2MG IVPG MG DOSE INSTEAD TO TRY AND PREVENT ANY OTHER EVENTS. 2317 - IVPG COMPLETE. PT STILL HAVING INTERMITTENT COUPLETS BUT NO VTACH EPISODES CURRENTLY.
[2020-10-31 04:44] LABS: Hematocrit 29.7 % (37.0-53.0); Hemoglobin 9.6 g/dL (13.5-17.5)
--- NOTE | 2020-10-31 05:00 | NUR ---
SHIFT SUMMARY SEE CARDIAC EVENT NOTE. PT AXO. VARYING TELEMETRY EVENTS BUT, STABLE SINCE MAGNESIUM INFUSION. REMAINS ON 2L - RA. PT NPO SINCE MIDNIGHT FOR ANGIO. HOT METAL CRANE OPERATOR RN CALLED STATING ANGION WOULD START AROUND 0830 - 0900. OTHERWISE, VSS. PT HAS BEEN RESTING OFF AND ON BUT STATES HE DOESN'T GET MUCH REST IN THE HOSPITAL. BED ALARM ON. WCTM.
[2020-10-31 05:02] LABS: Albumin, Blood 2.1 g/dL (3.4-5.0); Anion Gap 7 mmol/L (6-16); Blood Urea Nitrogen 38 mg/dL (8-24); Bun/Creatinine Ratio 11.1 (12.0-20.0); CO2, Blood 30 mmol/L (21-32); Calcium, Blood 8.1 mg/dL (8.5-10.1); Chloride, Blood 102 mmol/L (98-108); Creatinine, Blood 3.42 mg/dL (0.60-1.20); Glomerular Filtration Rate 18 (60-); Glucose, Blood 182 mg/dL (70-99); Magnesium, Blood 2.7 mg/dL (1.6-2.4); Phosphorus, Blood 3.9 mg/dL (2.5-4.9); Potassium, Blood 4.1 mmol/L (3.5-5.5); Sodium, Blood 139 mmol/L (136-145)
--- NOTE | 2020-10-31 09:36 | NUR ---
ASSUMED CARE 0700. PT A/O X4. PER TELE, PT HAVING BIGEMINY RHYTHM WITH PVC'S; DISCUSSED WITH OUTDOOR ILLUMINATING ENGINEER, CUTTER DOWN NOTIFIED. EKG COMPLETED. PT OUT FOR PROCEDURE AT ABOUT 0900.
--- NOTE | 2020-10-31 12:09 | NUR ---
PT BACK FROM PROCEDURE AT 1045. ARM BOARD IN PLACE TO R WRIST. SITE WNL, BALOON INFLATED. VS WNL. O2 PROBE ON INDEX FINGER. 2CC OF AIR REMOVED AT 1200.
--- NOTE | 2020-10-31 14:47 | NUR ---
TR BAND COMPLETELY DEFLATED AT THIS TIME. NO ACTIVE BLEEDING NOTED, SMALL AMOUNT OF OLD BLOOD NOTED NEAR PUNCTURE SITE. R HAND COLOR AND SENSATION INTACT. PT DENIES ANY NEEDS AT THIS TIME. HD NURSE AT BEDSIDE.
--- NOTE | 2020-10-31 15:49 | NUR ---
TR BAND ON R WRIST REMOVED AT 1530. BALOON DEFLATED 2CC AT A TIME AT 1200, 1230, 1315, 1345, AND 1430. SITE MONITORED FOR BLEEDING, PERFUSION, AND HEMATOMA. SITE WNL. BAND REMOVED AT 1530 WNL, SURROUNDING AREA CLEANED, AND CLEAR DRESSING PLACED. ARMBOARD REPLACED AND PT INSTRUCTED TO LEAVE IN PLACE FOR 48HRS.
--- NOTE | 2020-10-31 16:59 | NUR ---
BOAT WORKER IN TO TALK WITH PT. PT'S ON SPEAKER PHONE, ASKING QUESTIONS.
--- NOTE | 2020-10-31 17:01 | NUR ---
SHIFT SUMMARY PT A/O X4, TOLERATING PO INTAKE. PT HAD ANGIOGRAM TODAY USING R WRIST. ARMBOARD IN PLACE. SEE PREVIOUS NOTE. PT ALSO HAD DIALYSIS TODAY. PT WILL BE TRANSFERRING UP TO [facility] THIS EVENING. UPDATED AND WAS ABLE TO SPEAK WITH TOOL CRIB LEAD. PT WAITING FOR TRANSPORT AT THIS TIME.
--- NOTE | 2020-10-31 18:17 | NUR ---
PT TRANSPORTED TO [facility] AT 1750.
== END 2020-10-31 18:01 | disposition short-term general hospital (02) | DRG 280 ==
LOC: ER 17:58 → PCU 20:18
PROVIDERS: Emergency Medicine; Family Medicine; Internal Medicine Nephrology; ADMIT Internal Medicine
PROC: 5A09357 Assistance with Respiratory Ventilation, Less than 24 Consecutive Hours, Continuous Positive Airway Pressure (ICD-10-PCS; principal; 2020-10-28)
PROC: 5A1D70Z Performance of Urinary Filtration, Intermittent, Less than 6 Hours Per Day (ICD-10-PCS; 2020-10-30)
PROC: B2111ZZ Fluoroscopy of Multiple Coronary Arteries using Low Osmolar Contrast (ICD-10-PCS; 2020-10-31)
DX: I13.2 Hypertensive heart and chronic kidney disease with heart failure and with stage 5 chronic kidney disease, or end stage renal disease (principal); N18.6 End stage renal disease; I21.A1 Myocardial infarction type 2; J96.01 Acute respiratory failure with hypoxia; I50.43 Acute on chronic combined systolic (congestive) and diastolic (congestive) heart failure; N25.81 Secondary hyperparathyroidism of renal origin; Q61.3 Polycystic kidney, unspecified; Z66 Do not resuscitate; E10.22 Type 1 diabetes mellitus with diabetic chronic kidney disease; E78.5 Hyperlipidemia, unspecified; E03.9 Hypothyroidism, unspecified; I25.5 Ischemic cardiomyopathy; E10.51 Type 1 diabetes mellitus with diabetic peripheral angiopathy without gangrene; D63.1 Anemia in chronic kidney disease; I35.0 Nonrheumatic aortic (valve) stenosis; I25.10 Atherosclerotic heart disease of native coronary artery without angina pectoris; Z95.5 Presence of coronary angioplasty implant and graft; Z98.890 Other specified postprocedural states; Z99.2 Dependence on renal dialysis; I25.2 Old myocardial infarction; Z89.422 Acquired absence of other left toe(s); Z87.891 Personal history of nicotine dependence; Z95.828 Presence of other vascular implants and grafts; Z79.01 Long term (current) use of anticoagulants; Z79.02 Long term (current) use of antithrombotics/antiplatelets; Z79.899 Other long term (current) drug therapy; Z79.4 Long term (current) use of insulin; Z95.820 Peripheral vascular angioplasty status with implants and grafts; Z87.11 Personal history of peptic ulcer disease
CPT/HCPCS: 36415; 36600; 71045; 71260; 80053; 80069; 82803; 82947; 83605; 83735; 83880; 84100; 84145; 84443; 84484; 85014; 85018; 85025; 93005; 93010; 93308; 93321; 93454; 94760; 99152; 99153; 99285-25; A9270; C1769; C1894; J0696; J0881; J1644; J1815; J2250; J3010; J3475; J7030; Q9967

== ENCOUNTER 2020-11-16 22:40 | Inpatient (IN) | payer MEDICARE ==
[~2020-11-16] VITALS: Ht 172.7 cm; Wt 56.7 kg
[2020-11-16 23:29] LABS: BASOPHILS ABSOLUTE AUTO 0.01 K/mm3 (0.00-0.23); BASOPHILS PERCENT AUTO 0 % (0-2); EOSINOPHILS ABSOLUTE AUTO 0.04 K/mm3 (0.00-0.68); EOSINOPHILS PERCENT AUTO 2 % (0-6); Hematocrit 38.6 % (37.0-53.0); Hemoglobin 12.2 g/dL (13.5-17.5); Mean Corpuscular HGB 31.1 pg (26.0-34.0); Mean Corpuscular HGB Conc 31.6 g/dL (31.5-36.5); Mean Corpuscular Volume 99 fL (80-100); Mean Platelet Volume 9.7 fL (9.1-12.4); Platelet Count 324 K/mm3 (150-400); RDW Coefficient Variation 14.9 % (11.7-14.2); RDW Standard Deviation 54.1 fL (35.1-46.3); Red Blood Cell Count 3.92 M/mm3 (4.30-5.90); White Blood Cell Count 2.62 K/mm3 (4.00-11.30)
[2020-11-16 23:31] LABS: IMMATURE GRAN ABSOLUTE AUTO 0.01 K/mm3 (0.00-0.10); IMMATURE GRAN PERCENT AUTO 0 % (0-1); LYMPHOCYTES ABSOLUTE AUTO 0.12 K/mm3 (0.84-5.20); LYMPHOCYTES PERCENT AUTO 5 % (21-46); MONOCYTES ABSOLUTE AUTO 0.03 K/mm3 (0.16-1.47); MONOCYTES PERCENT AUTO 1 % (4-13); NEUTROPHILS ABSOLUTE AUTO 2.41 K/mm3 (1.96-9.15); NEUTROPHILS PERCENT AUTO 92 % (41-73)
[2020-11-16 23:45] LABS: BAND PERCENT MAN 20 % (0-8); BASOPHILS PERCENT MAN 0 % (0-2); EOSINOPHILS PERCENT MAN 0 % (0-6); MONOCYTES PERCENT MAN 0 % (4-13); NEUTROPHILS ABSOLUTE MAN 2.62 K/mm3 (1.96-9.15); SEG NEUTROPHILS PERCENT MAN 80 % (41-73); TOTAL CELLS COUNTED 10
[2020-11-16 23:51] LABS: Albumin, Blood 2.3 g/dL (3.4-5.0); Albumin/Globulin Ratio 0.6 (0.8-1.8); Bilirubin, Total 0.6 mg/dL (0.1-1.0); Bun/Creatinine Ratio 7.9 (12.0-20.0); Calcium, Blood 7.5 mg/dL (8.5-10.1); Creatinine, Blood 4.41 mg/dL (0.60-1.20); Globulin, Blood 3.8 g/dL (2.2-4.0); Potassium, Blood 3.3 mmol/L (3.5-5.5); Total Protein, Blood 6.1 g/dL (6.4-8.2); Troponin I 0.061 ng/mL (0.000-0.040)
[2020-11-17] MEDS ORDERED: Aspir 8181 MG PO (00:40)
[2020-11-17] MEDS ORDERED: CARV3.125 PO (00:41)
[2020-11-17] MEDS ORDERED: MIDO5 PO (00:42)
[2020-11-17] MEDS ORDERED: ELIQUIS2.5 MG PO (00:44)
[2020-11-17] MEDS ORDERED: GENTAMICIN SULF15 GM TOP (00:45)
[2020-11-17] MEDS ORDERED: NITR.4SL SL (00:47)
[2020-11-17] MEDS ORDERED: TOUJEO SOL300 UNIT/2 SC (00:49)
[2020-11-17 02:07] LABS: PCO2 Arterial 37.8 mmHg (35-45); PO2 Arterial 128 mmHg (80-100); pH Blood Arterial 7.36 (7.35-7.45)
[2020-11-17 02:20] LABS: Source, Urine Catheter
[2020-11-17 02:24] LABS: Blood, Urine 1+ (Neg); Glucose Qualitative, Urine Neg (Neg); Ketones, Urine 1+ (Neg); Leukocyte Esterase, Urine 1+ (Neg); Nitrite, Urine Neg (Neg); Protein, Urine 3+ (Neg); Urobilinogen, Urine 1+ (Normal)
[2020-11-17 02:25] LABS: Appearance, Urine Clear (Clear); Bilirubin, Urine 1+ (Neg); Color, Urine Amber (P-Yellow)
[2020-11-17 03:01] LABS: Amorphous Light (0-Heavy); Bacteria Mod /hpf; Hyaline Casts 0-2 /lpf (0-2); Red Blood Cells, Urine 0-2 /hpf (0-2); Squamous Epithelial Cells Not Seen /hpf (Few)
[2020-11-17 05:57] LABS: SARS-Cov-2 (COVID-19) PCR, MMC NEGATIVE (NEGATIVE)
== END 2020-11-17 08:03 | DRG 871 ==
LOC: ER 22:40 → ERHOLD 11-17 02:17
PROVIDERS: Emergency Medicine; Physician Assistant; ADMIT Internal Medicine
PROC: 0BH18EZ Insertion of Endotracheal Airway into Trachea, Via Natural or Artificial Opening Endoscopic (ICD-10-PCS; principal; 2020-11-17)
PROC: 5A1935Z Respiratory Ventilation, Less than 24 Consecutive Hours (ICD-10-PCS; 2020-11-17)
PROC: 3E043XZ Introduction of Vasopressor into Central Vein, Percutaneous Approach (ICD-10-PCS; 2020-11-17)
PROC: 5A09357 Assistance with Respiratory Ventilation, Less than 24 Consecutive Hours, Continuous Positive Airway Pressure (ICD-10-PCS; 2020-11-17)
PROC: 5A12012 Performance of Cardiac Output, Single, Manual (ICD-10-PCS; 2020-11-17)
PROC: 02HV33Z Insertion of Infusion Device into Superior Vena Cava, Percutaneous Approach (ICD-10-PCS; 2020-11-17)
DX: A41.9 Sepsis, unspecified organism (principal); R65.21 Severe sepsis with septic shock; K65.2 Spontaneous bacterial peritonitis; N18.6 End stage renal disease; I50.22 Chronic systolic (congestive) heart failure; E03.9 Hypothyroidism, unspecified; Z66 Do not resuscitate; I25.10 Atherosclerotic heart disease of native coronary artery without angina pectoris; Z51.5 Encounter for palliative care; Z20.822 Contact with and (suspected) exposure to COVID-19; F32.9 Major depressive disorder, single episode, unspecified; D72.819 Decreased white blood cell count, unspecified; E10.22 Type 1 diabetes mellitus with diabetic chronic kidney disease; D63.1 Anemia in chronic kidney disease; E87.6 Hypokalemia; I46.9 Cardiac arrest, cause unspecified; Z95.5 Presence of coronary angioplasty implant and graft; Z87.891 Personal history of nicotine dependence; Z95.828 Presence of other vascular implants and grafts; Z99.2 Dependence on renal dialysis; Z79.4 Long term (current) use of insulin; Z79.01 Long term (current) use of anticoagulants; Z79.899 Other long term (current) drug therapy; Z79.02 Long term (current) use of antithrombotics/antiplatelets; Z79.82 Long term (current) use of aspirin
CPT/HCPCS: 31500; 36556; 36600; 51702; 71045; 74176; 80053; 81001; 82803; 83605; 84484; 85025; 92950; 93005; 93010; 94002; 96365; 96366; 96368; 96375; 96376; 99291-25; A9270; C1751; J0692; J2370; J2543; J2704; J3370; J3475; J7030; J7060; U0004